=== PATIENT | female | born 1960 | race Caucasian/White ===

== ENCOUNTER 2019-10-08 16:28 | Emergency (ER) | payer MEDICAID, SELFPAY ==
[2019-10-08 16:47] VITALS: BP 142/83; PULSE 86; RESP 19; TEMP 36.7; O2SAT 98; BMI 29.2
--- NOTE | 2019-10-08 16:47 | XR_ITS ---
PROCEDURE: XR HUMERUS LT CLINICAL INDICATION: FALL Posttraumatic pain with limited range of motion and bruising COMPARISON: XR SHOULDER LT MIN 2V from 10/08/2019 FINDINGS: Nondisplaced avulsion fracture involves the base of the greater tuberosity. The mid distal aspect of the humerus has an unremarkable appearance. There is minimal comminution along the superior aspect of the fracture The joint spaces are well-preserved. No significant degenerative/arthritic changes. No erosive changes evident. Other findings:None. IMPRESSION: Nondisplaced avulsion fracture of the greater tuberosity Dictated by: Bon Fuentes MD 10/08/2019 17:19 Electronically signed by Bon Fuentes MD in [place] 10/08/2019 17:19
--- NOTE | 2019-10-08 17:26 | HMH.EDUTC ---
[facility] [place] Clinical Impression: Left humeral fracture Qualifiers: Encounter type: initial encounter Humerus Location: proximal Fracture type: closed Fracture morphology: other fracture Fracture alignment: nondisplaced Qualified Code(s): S42.295A - Other nondisplaced fracture of upper end of left humerus, initial encounter for closed fracture Disposition: Home, Self-Care Condition on Discharge: Good Instructions: Humeral Shaft Fracture Additional Instructions: Rest the extremity, apply ice for 15 minutes as tolerated three or four times per day. Take ibuprofen for pain. I sent in a prescription to your pharmacy. Follow up with Dr. Roa. I spoke to her over the phone. Her office is supposed to call you in the morning to have you come in to be seen there tomorrow. If you don't hear from them by 10:00 then please call her office. Follow up with your regular doctor. GO TO THE ER FOR ANY WORSENING SYMPTOMS Referrals: [place] Lara MD [Primary Care Provider] - Tess Roa MD [Physician] - Time of Disposition: 17:31 Medical Decision Making - Medical Records Medical records reviewed: No: I reviewed the patient's medical records. - Grabiel Inquiry Pt receiving controlled substance: No Vital Signs: 10/08/19 16:47 10/08/19 17:32 Temperature 98.1 F 98.1 F Temperature Source Oral Oral Pulse Rate 86 Pulse Rate [Right Brachial] 86 Respiratory Rate 19 19 Blood Pressure 142/83 H Blood Pressure [Right Arm] 142/83 H Blood Pressure Mean [Right Arm] 102 Blood Pressure Source Automatic Cuff Blood Pressure Source [Right Arm] Automatic Cuff Blood Pressure Position Sitting Blood Pressure Position [Right Arm] Sitting 02 Sat by Pulse Oximetry 98 Oxygen Delivery Method Room Air Room Air - Radiology Data #1 Image(s): Shoulder Image Reviewed: Yes I reviewed the patient's radiology image, Yes I have reviewed radiologist's interpretation FINDINGS: Nondisplaced avulsion fracture involves the base of the greater tuberosity. The mid distal aspect of the humerus has an unremarkable appearance. There is minimal comminution along the superior aspect of the fracture The joint spaces are well-preserved. No significant degenerative/arthritic changes. No erosive changes evident. Other findings:None. IMPRESSION: Nondisplaced avulsion fracture of the greater tuberosity #2 Image(s): Humerus Image Reviewed: Yes I reviewed the patient's radiology image, Yes I have reviewed radiologist's interpretation FINDINGS: Nondisplaced avulsion fracture involves the base of the greater tuberosity. The mid distal aspect of the humerus has an unremarkable appearance. There is minimal comminution along the superior aspect of the fracture The joint spaces are well-preserved. No significant degenerative/arthritic changes. No erosive changes evident. Other findings:None. IMPRESSION: Nondisplaced avulsion fracture of the greater tuberosity [facility] [place] - General Stated complaint: AO 0405 fell injured L Arm Time Seen by Provider: 10/08/19 17:00 Mode of Arrival: Family Vehicle Source of Information: Patient Limitations: No Limitations Description of Symptoms (Recalled from Triage Doc. by RN): s/p fall at home on sidewalk on Saturday10/04/19. c/o left arm and shoulder pain HEENT Symptoms (Recalled from RN notes): No Resp Symptoms (Recalled from RN notes): No Skin Symptoms (Recalled from RN notes): No MS Symptoms (Recalled from RN notes): Yes Functional Status (Recalled from RN notes): n/a - History of Present Illness Provider Complaint: She states that she fell yesterday in her yard and came down on her left shoulder and upper arm - Related Data Previous Rx's Medication Instructions Recorded levothyroxine 25 mcg tablet 25 mcg PO DAILY #30 tab 09/16/18 aspirin 81 mg tablet,delayed 81 mg PO DAILY #90 tab 08/14/19 release alendronate 70 mg tablet See Rx Instructions .ROUTE 09/16/19 .COMPL
[2019-10-08 17:32] VITALS: BP 142/83; PULSE 86; RESP 19; TEMP 36.7; O2SAT 98
== END 2019-10-08 17:37 | disposition home or self-care (01) ==
PROVIDERS: Emergency Provider Nurse Practitioner Family; PCP Emergency Medicine
DX: S42.255A Nondisplaced fracture of greater tuberosity of left humerus, initial encounter for closed fracture (principal); W01.0XXA Fall on same level from slipping, tripping and stumbling without subsequent striking against object, initial encounter; Y92.480 Sidewalk as the place of occurrence of the external cause; I10 Essential (primary) hypertension; E78.5 Hyperlipidemia, unspecified; E03.9 Hypothyroidism, unspecified; F17.210 Nicotine dependence, cigarettes, uncomplicated
CPT/HCPCS: 73030; 73060; 99201

== ENCOUNTER → 2019-10-14 12:42 | Outpatient (CLI) | payer MEDICAID, SELFPAY ==
--- NOTE | 2019-10-14 12:42 | CT_ITS ---
PROCEDURE: CT SHOULDER LT WO CON CLINICAL HISTORY: left proximal humerus fracture fu Pain following injury, evaluate shoulder fracture COMPARISON: XR SHOULDER LT MIN 2V from 10/08/2019 TECHNIQUE: Axial images obtained with sagittal and coronal reformats. All CT scans at the facility use one or more dose reduction, viz: automated exposure control, ma/kV adjustment per patient size (including targeted exams where dose is matched to indication, i.e. head), or iterative reconstruction technique. FINDINGS: There is a comminuted fracture involving the proximal humerus at the greater tuberosity. Main fracture fragment extends cephalad caudad through the base of the greater tuberosity with minimal lateral displacement of the fracture fragment by 4 mm. There is some comminution along the superior aspect of the fracture fragment. No evidence of humeral neck fracture. Mild narrowing of the subacromial space mm with minimal hypertrophic change of the acromioclavicular joint. A small subarticular cyst is present involving the acromion at the AC joint superiorly. No evidence glenohumeral dislocation. IMPRESSION: Minimally displaced longitudinal fracture involves the greater tuberosity of the proximal humerus with minimal comminution along the superior aspect of the main fracture fragment Dictated by: Bon Fuentes MD 10/14/2019 16:35 Electronically signed by Bon Fuentes MD in [place] 10/14/2019 16:37
== END ==
PROVIDERS: PCP Emergency Medicine; Visit Provider Orthopaedic Surgery
DX: S42.202A Unspecified fracture of upper end of left humerus, initial encounter for closed fracture (principal)
CPT/HCPCS: 73200

== ENCOUNTER → 2019-10-22 08:40 | Outpatient (CLI) | payer MEDICAID, SELFPAY ==
--- NOTE | 2019-10-22 08:42 | XR_ITS ---
PROCEDURE: XR SHOULDER LT MIN 2V CLINICAL INDICATION: humerus FX Follow-up fracture COMPARISON: No exams were available for comparison FINDINGS: Non displaced fracture once again noted involving the base of the greater tuberosity of the humerus. Fracture line appears somewhat more prominent but could be due to hyperemia seen at fracture sites. IMPRESSION: Nondisplaced avulsion fracture of the greater tuberosity once again noted with slight increased prominence of the fracture line Dictated by: Bon Fuentes MD 10/22/2019 13:26 Electronically signed by Bon Fuentes MD in [place] 10/22/2019 13:26
== END ==
PROVIDERS: PCP Emergency Medicine; Visit Provider Orthopaedic Surgery
DX: S42.252A Displaced fracture of greater tuberosity of left humerus, initial encounter for closed fracture (principal)
CPT/HCPCS: 73030

== ENCOUNTER → 2019-10-22 10:20 | Outpatient (CLI) | payer MEDICAID, SELFPAY ==
--- NOTE | 2019-10-22 10:36 | XR_ITS ---
PROCEDURE: XR CHEST 2V CLINICAL HISTORY: pre operation, HTN, SMOKER Hypertension and smoker COMPARISON: No exams were available for comparison FINDINGS: The cardiomediastinal silhouette and pulmonary vascularity are within normal limits. The lungs are clear without infiltrates, suspicious nodules, or pleural effusions. There is a calcified granuloma in the lung base anteriorly. No acute bony findings. A thin linear density is noted over the left apex and is felt represent an artifact IMPRESSION: No acute findings. Dictated by: Bon Fuentes MD 10/22/2019 12:44 Electronically signed by Bon Fuentes MD in [place] 10/22/2019 12:44
[2019-10-22 10:47] LABS: Basophils # 0.1 K/mm3 (0-0.2); Eosinophils # 0.3 K/mm3 (0.0-0.4); Eosinophils % 2.5 % (0.1-12.0); Hematocrit 45.7 % (37.0-47.0); Hemoglobin 15.2 g/dL (12.2-16.2); Lymphocytes # 2.2 K/mm3 (0.7-4.5); Lymphocytes % 20.2 % (10-50); Mean Corpuscular HGB Conc 33.4 g/dL (31.8-35.4); Mean Corpuscular Hemoglobin 32.9 pg (27.0-31.2); Mean Corpuscular Volume 98.7 fl (81-99); Mean Platelet Volume 8.1 fl (7.4-10.4); Monocytes # 0.3 K/mm3 (0.1-1.0); Monocytes % 2.9 % (1.7-9.3); Neutrophils # 8.1 K/mm3 (1.8-7.8); Neutrophils % 73.4 % (37.0-80.0); Platelet Count 275 K/mm3 (142-424); Red Blood Count 4.62 M/mm3 (4.20-5.40); Red Cell Distribution Width 12.4 % (11.5-17.5); White Blood Count 11.1 K/mm3 (4.8-10.8)
--- NOTE | 2019-10-22 10:58 | ECG_ITS ---
APPROVED REPORT Exam: Resting ECG HR:81 bpm ECG Measurements Heart Rate 81 AXES ME 146 P 27 QRSd 94 QRS 29 QT 392 T 51 QTc 455 <Conclusion> Normal sinus rhythm Incomplete right bundle branch block Septal infarct, age undetermined Abnormal ECG Electronically signed by : Dashawn 10/23/2019 06:56:20
[2019-10-22 11:13] LABS: Chloride 102 mmol/L (98-107); Potassium 4.4 mmoL/L (3.5-5.1); Sodium 139 mmol/L (136-145)
[2019-10-22 11:16] LABS: Alanine Aminotransferase 27 U/L (12-78); Albumin Level 5.1 g/dl (3.5-5.0); Albumin/Globulin Ratio 1.9 (1.1-1.8); Alkaline Phosphatase 95 U/L (38-126); Anion Gap 16.4 mEq/L (5-15); Aspartate Amino Transferase 45 U/L (14-36); Bilirubin,Total 0.5 mg/dl (0.2-1.3); Blood Urea Nitrogen 17 mg/dl (7-17); Calcium 10.6 mg/dl (8.4-10.2); Carbon Dioxide 25 mmol/L (22.0-30.0); Estimated Glomerular Filt Rate 86 ml/min (>60); GFR (African American) 104 ML/MIN (>60); Globulin 2.7 g/dL (1.3-3.2); Glucose 107 mg/dl (74-100); Total Protein,Serum 7.8 g/dl (6.3-8.2)
[2019-10-22 12:41] LABS: Activated Partial Thrombo Time 25.6 seconds (23.6-34.0); INR 0.94 (0.9-1.1); Prothrombin Time 9.8 seconds (9.4-11.8)
== END ==
PROVIDERS: Visit Provider Orthopaedic Surgery
DX: S42.252A Displaced fracture of greater tuberosity of left humerus, initial encounter for closed fracture (principal)
CPT/HCPCS: 36415; 71046; 73030; 80053; 85025; 85610; 85730; 93005

== ENCOUNTER 2019-10-27 06:04 | Day surgery (SDC) | payer MEDICAID, SELFPAY ==
[2019-10-26 13:15] VITALS: BMI 28.3
[2019-10-27] VITALS (8 sets, daily range): BP systolic 113–166; BP diastolic 59–90; PULSE 86–99; RESP 12–20; TEMP 36.4–36.6; O2SAT 95–98
--- NOTE | 2019-10-27 09:04 | HMH.ANESCL ---
[facility] Anesthesia Checklist - Structural Data Admitted From: Home Planned Operative Procedure/s: orif l humerus Consent for Planned Operative Procedure(s) Verified: Yes - Additional verifications Anesthesia Reactions: No Hx Blood Transfusions: No Blood Transfusion Reaction: No - Airway Assessment C-Spine Mobility Assessed: Yes TMJ Mobility Assessed: Yes Dentition: Partials - Neurological Assessment Level of Consciousness: Awake, Alert, Appropriate - Anesthesia Plan Anesthesia Risk discussed: Yes Anesthesia Plan: Verified ASA Class: II Anesthesia Type: General w/block - Preoperative Comments Pre-Operative Comments: discussed bp block w pt incl risks, pt wants to proceed w block [facility] History I have reviewed the patient's past medical history: Yes Medical History: Reports:: Cancer (uterine), Deep Vein Thrombosis, Hyperlipidemia, Hypertension Denies:: Diabetes Mellitus Type 1, Diabetes Mellitus Type 2, MRSA, Seizures *Have you ever received a pneumonia vaccine?: Yes *Have you received a flu vaccine this season?: Yes Other Medical History: Reports: Hypothyroidism. Denies: Blood Transfusion Reaction Anesthesia experience/problems:: none Other Surgeries: Yes: Cancer Surgery, Colonoscopy, Hysterectomy-Total Amputation: No Fractures: No - *Social History Educational Level: Attended College Smoking Status: Current every day smoker Tobacco Type: cigarettes # Packs/Day (cigarettes): 1 Alcohol Intake: never Substance Use Type: denies use *Occupational Status:: employed Housing: house Household Members: significant other, family *Travel in the last 8 weeks: None Family Hx:: Cancer, Hypertension
--- NOTE | 2019-10-27 10:17 | XR_ITS ---
PROCEDURE: XR HUMERUS LT CLINICAL INDICATION: LEFT HUMERUS ORIF COMPARISON: XR HUMERUS LT from 10/08/2019 FINDINGS: Fluoro Time 42 seconds multiple images are submitted during ORIF of the proximal humeral fracture with final images showing good alignment after a bone plate and multiple screws have been placed. Other findings:None. IMPRESSION: Good alignment status post ORIF proximal left humeral fracture Dictated by: Bon Fuentes MD 10/28/2019 13:56 Electronically signed by Bon Fuentes MD in [place] 10/28/2019 13:56
--- NOTE | 2019-10-27 10:19 | SUR.OPER ---
1010-family updated at this time
--- NOTE | 2019-10-27 10:50 | P.PN_ITS ---
[facility] Anesthesia Record Part I Intake, IV Amount: 2,000 Estimated blood loss (mL): 100 Urine output (mL): 200 Blood Pressure: 113/65 SaO2: 95 Pulse Rate: 95 Respiratory Rate: 12 Temperature: 97.6 F Patient is:: Awake, Stable Stable to PACU at:: 10:45
--- NOTE | 2019-10-27 10:56 | XR_ITS ---
PROCEDURE: XR SHOULDER LT MIN 2V CLINICAL INDICATION: s/p ORIF left proximal humerus Follow-up surgery COMPARISON: XR SHOULDER LT MIN 2V from 10/08/2019 XR SHOULDER LT MIN 2V from 10/22/2019 XR HUMERUS LT from 10/27/2019 FINDINGS: Has been interval open reduction and internal fixation the proximal humeral fracture with good alignment of the greater tuberosity avulsion fracture fragment. Postsurgical changes are present with bandage artifact IMPRESSION: Good alignment status post ORIF proximal humeral fracture with lateral bone plate with multiple screws Dictated by: Bon Fuentes MD 10/27/2019 11:46 Electronically signed by Bon Fuentes MD in [place] 10/27/2019 11:46
--- NOTE | 2019-10-27 11:11 | PC.NURSE ---
1111-radiology at bedside
--- NOTE | 2019-10-27 12:01 | PC.NURSE ---
1113-detailed bedside given to GHULAM Felder 1115-pt transferred to phase II at this time, vss, pt stable, pt left in care of GHULAM Felder
--- NOTE | 2019-10-27 13:11 | HMH.OPNOTE ---
Date of procedure: 10/27/19 Pre-op Diagnosis:: L proximal humerus (greater tuberosity) fracture Post-op Diagnosis:: L proximal humerus (greater tuberosity) fracture Procedure performed:: ORIF L proximal humerus (greater tuberosity) fracture Surgeon:: Tess Roa MD Ward Aide(s):: Patricia Martínez POWER ENGINEER:: Curry Cohen Anesthesia: GETA, regional Estimated blood loss (mL): 50 Clinical Note:: 58yo right hand dominant female who sustained an injury to the left shoulder on 10/04/2019 when she tripped over an uneven portion of the sidewalk while walking her dog, landing on the L shoulder. She had immediate pain and by the following day developed significant bruising across the front of the arm. She had hoped the injury was confined to bruising, but she was unable to lift her arm; this persisted throughout the week, prompting her to seek evaluation at the [facility] [place]/08/[place]. X-ray revealed a L proximal humerus fracture of the greater tuberoisity; she was placed in a sling. She saw me the following day, 10/09/19, and a CT scan performed. There was minimal displacement <4mm of the greater tuberosity and I initially felt non-operative treatment was feasible. Over the subsequent week, however, despite immobilization in a sling and no use of the L arm, the fracture fragment appears to have moved slightly. At her visit on 10/22/19, I recommended surgical fixation. She is a smoker but reports otherwise a clean bill of health. She had does have a diagnosis of hypertension and hypothyroidism, both controlled with medications. There is no DEXA scan in our system, but she does take alendronate. She has had a hysterectomy. She has a past history of spontaneous DVT, which was treated with prolonged warfarin therapy. This was eventually discontinued and she now only takes aspirin daily. She says her PCP tested her for hypercoagulable states, but is unsure of the exact test. She has never injured this shoulder before and reports no previous surgeries on the left upper extremity. Pain is rated an 8 out of 10 at its worst. She lives in a 2-story home with an adult child and her significant other, who is able to help care for her. She does not work outside the home. I discussed the risks and benefits of both surgical and nonsurgical treatment with the patient, including the risk of fracture displacement with associated rotator cuff dysfunction, subacromial impingement, and pain/disability and possible need for ORIF of nonunion associated with nonoperative treatment. I discussed the risk of surgical treatment, including bleeding, infection, neurovascular damage, persistent pain and stiffness in the shoulder, risk of nonunion/malunion or hardware failure, need for revision surgery. After discussing treatment options, the patient has elected to proceed with surgical fixation and informed consent was obtained. Operative findings:: implants: [employer] 4-hol greater tuberosity plate; 7 screws, all 3.5mm screws (1 cortical, 6 locking) Operative note:: The patient was identified in preoperative holding and the left shoulder signed by myself. Consent was reviewed with the patient and all questions answered. Interscalene nerve block was performed by anesthesia and the patient was taken to the OR. She was placed supine on the operative table, 2 g Ancef infused and general anesthesia induced. The patient was then positioned into the beachchair position with the head in a neutral position and well supported with all bony prominences padded. The left shoulder was then prepped and draped in the usual sterile fashion for open shoulder surgery. Timeout was performed, identifying the correct patient, correct procedure, and correct site. I began the procedure by using a marking pen to draw anatomic surface landmarks on the skin. Next I dereck a longitudinal line over the lateral aspect of the shoulder, from the acromion, distally approximately 5-6cm. Sterile 10-blade was used to incise the skin in th
[2019-10-27 15:31] LABS: Microscopic, Urine URINE MICROSCOPIC (MICROSCOPIC)
[2019-10-27 16:25] LABS: Appearance,Urine CLEAR (Clear); Bilirubin,Urine Negative (Negative); Blood, Urine TRACE-I (Negative); Color,Urine YELLOW (Yellow); Glucose,Urine (UA) Negative (Negative); Ketones,Urine Negative (Negative); Leukocyte Esterase,Urine Negative (Negative); Nitrate,Urine Negative (Negative); Protein,Urine Negative (Negative); Urobilinogen,Urine 0.2 EU/dl (0.2)
[2019-10-27 16:34] LABS: Bacteria,Urine Trace /lpf; WBC,Urine Occasional #/hpf (0-3)
--- NOTE | 2019-10-29 07:49 | HMH.ANESII ---
[facility] Anesthesia Record Part II Discharge Time: 11:15 Destination: [facility] PACU nurse assessment reviewed?: Yes Patient Condition:: Good Anesthesia Complications:: None Swallowing reflex intact?: Yes Cyanosis?: No Blood Pressure: 159/76 Pulse Rate: 90 Temperature: 97.5 F Mental Status: Alert & Oriented Pain level:: 0 Nausea and/or vomitting:: None Intake, IV Amount: 1,500
[2019-10-29 07:52] VITALS: BP 159/76; PULSE 90; TEMP 36.4
== END 2019-10-27 11:55 | disposition home or self-care (01) ==
LOC: OR 06:05
PROVIDERS: PCP Emergency Medicine; Visit Provider Orthopaedic Surgery
PROC: (CPT 23630; principal; 2019-10-27 07:30)
DX: S42.252A Displaced fracture of greater tuberosity of left humerus, initial encounter for closed fracture (principal); W01.0XXA Fall on same level from slipping, tripping and stumbling without subsequent striking against object, initial encounter; Y92.480 Sidewalk as the place of occurrence of the external cause
CPT/HCPCS: 23630; 73030; 73060; 76000; 81001; 96374; C1713; C1776; J2405

== ENCOUNTER → 2019-11-05 08:55 | Outpatient (CLI) | payer MEDICAID, SELFPAY ==
--- NOTE | 2019-11-05 09:07 | XR_ITS ---
PROCEDURE: XR SHOULDER LT MIN 2V CLINICAL INDICATION: post op: humerus fx Follow-up fracture COMPARISON: XR SHOULDER LT MIN 2V from 10/08/2019 XR SHOULDER LT MIN 2V from 10/22/2019 XR SHOULDER LT MIN 2V from 10/27/2019 FINDINGS: Bone plate has been placed along the lateral aspect of the proximal humerus stabilizing the fracture of the greater tuberosity with she is in good alignment. Humeral head is located with minimal inferior subluxation.. IMPRESSION: Good alignment status post ORIF proximal humeral fracture Dictated by: Bon Fuentes MD 11/05/2019 10:13 Electronically signed by Bon Fuentes MD in [place] 11/05/2019 10:13
== END ==
PROVIDERS: PCP Emergency Medicine; Visit Provider Orthopaedic Surgery
DX: S42.302A Unspecified fracture of shaft of humerus, left arm, initial encounter for closed fracture (principal)
CPT/HCPCS: 73030

== ENCOUNTER → 2019-11-19 08:32 | Outpatient (CLI) | payer MEDICAID, SELFPAY ==
--- NOTE | 2019-11-19 08:38 | XR_ITS ---
PROCEDURE: XR SHOULDER LT MIN 2V CLINICAL INDICATION: s/p lt humerus fx Follow-up ORIF COMPARISON: XR SHOULDER LT MIN 2V from 10/08/2019 XR SHOULDER LT MIN 2V from 10/22/2019 XR SHOULDER LT MIN 2V from 10/27/2019 XR SHOULDER LT MIN 2V from 11/05/2019 FINDINGS: Status post ORIF proximal humeral fracture with lateral bone plate with good alignment the greater tubercle fracture fragment. Fracture line is still visible IMPRESSION: No change good alignment status post ORIF proximal left humeral fracture Dictated by: Bon Fuentes MD 11/19/2019 09:32 Electronically signed by Bon Fuentes MD in [place] 11/19/2019 09:32
== END ==
PROVIDERS: PCP Emergency Medicine; Visit Provider Orthopaedic Surgery
DX: S42.202A Unspecified fracture of upper end of left humerus, initial encounter for closed fracture (principal)
CPT/HCPCS: 73030

== ENCOUNTER → 2019-12-08 14:51 | Outpatient (CLI) | payer MEDICAID, SELFPAY ==
[2019-12-09 10:07] LABS: Basophils % 0.3 % (0.1-2.0); Eosinophils # 0.1 K/mm3 (0.0-0.4); Eosinophils % 1.3 % (0.1-12.0); Hematocrit 45.5 % (37.0-47.0); Hemoglobin 14.3 g/dL (12.2-16.2); Lymphocytes # 2.2 K/mm3 (0.7-4.5); Lymphocytes % 23.8 % (10-50); Mean Corpuscular HGB Conc 31.5 g/dL (31.8-35.4); Mean Corpuscular Hemoglobin 33.2 pg (27.0-31.2); Mean Corpuscular Volume 105.4 fl (81-99); Mean Platelet Volume 9.8 fl (7.4-10.4); Monocytes # 0.4 K/mm3 (0.1-1.0); Neutrophils # 6.4 K/mm3 (1.8-7.8); Neutrophils % 70.6 % (37.0-80.0); Platelet Count 281 K/mm3 (142-424); Red Blood Count 4.32 M/mm3 (4.20-5.40); Red Cell Distribution Width 12.3 % (11.5-17.5)
[2019-12-09 10:19] LABS: Alanine Aminotransferase 25 U/L (12-78); Aspartate Amino Transferase 46 U/L (14-36); Bilirubin,Total 0.5 mg/dl (0.2-1.3); Blood Urea Nitrogen 12 mg/dl (7-17); Carbon Dioxide 29 mmol/L (22.0-30.0); Chloride 95 mmol/L (98-107); Estimated Glomerular Filt Rate 86 ml/min (>60); GFR (African American) 104 ML/MIN (>60); Glucose 96 mg/dl (74-100); Sodium 136 mmol/L (136-145); Total Protein,Serum 7.8 g/dl (6.3-8.2)
[2019-12-09 10:20] LABS: Albumin/Globulin Ratio 1.8 (1.1-1.8); Alkaline Phosphatase 75 U/L (38-126); Chol/HDL Ratio 2.6 (1-3.5); Cholesterol 145 mg/dl (140-200); Globulin 2.8 g/dL (1.3-3.2); HDL Cholesterol 56 mg/dl (40-60); Triglycerides 119 mg/dl (30-150); VLDL Cholesterol 24 mg/dL (0-40)
[2019-12-09 10:31] LABS: Direct LDL Cholesterol 87.17 mg/dL (100-129)
[2019-12-09 10:36] LABS: T4 (Thyroxine) 9.5 ug/dl (5.53-11.0)
[2019-12-09 10:49] LABS: Thyroid Stimulating Hormone 2.62 uIU/mL (0.465-4.68)
[2019-12-10 09:13] LABS: Vitamin D 25 Hydroxy 20.9 ng/mL (30.0-100.0)
== END ==
PROVIDERS: Visit Provider Physician Assistant
DX: E03.9 Hypothyroidism, unspecified (principal); I10 Essential (primary) hypertension; E55.9 Vitamin D deficiency, unspecified
CPT/HCPCS: 80053; 80061; 82652; 84436; 84443; 85025

== ENCOUNTER → 2019-12-09 16:20 | Outpatient (CLI) | payer MEDICAID, SELFPAY ==
[2019-12-11 11:17] LABS: Folate >20.0 ng/mL (>3.0); Parathyroid Hormone Intact 29 pg/mL (15-65)
[2019-12-11 11:18] LABS: Vitamin B12 669 pg/mL (232-1245)
[2019-12-11 17:10] LABS: Calcium, Ionized 5.5 mg/dL (4.5-5.6)
== END ==
PROVIDERS: Visit Provider Physician Assistant
DX: E83.52 Hypercalcemia (principal); R71.8 Other abnormality of red blood cells
CPT/HCPCS: 36415; 82330; 82607; 82746; 83970

== ENCOUNTER → 2019-12-14 08:38 | Outpatient (CLI) | payer MEDICAID, SELFPAY ==
--- NOTE | 2019-12-14 08:46 | XR_ITS ---
PROCEDURE: XR SHOULDER LT MIN 2V CLINICAL INDICATION: humerus FX Follow-up surgery COMPARISON: XR SHOULDER LT MIN 2V from 10/22/2019 XR SHOULDER LT MIN 2V from 10/27/2019 XR SHOULDER LT MIN 2V from 11/05/2019 XR SHOULDER LT MIN 2V from 11/19/2019 FINDINGS: Status post ORIF left proximal humerus with lateral bone plate. Comminuted fragment of the greater tubercle once again noted nondisplaced and unchanged. Humeral head is located. IMPRESSION: Good alignment status post ORIF left proximal humerus Dictated by: Bon Fuentes MD 12/14/2019 16:47 Electronically signed by Bon Fuentes MD in [place] 12/14/2019 16:47
== END ==
PROVIDERS: PCP Emergency Medicine; Visit Provider Orthopaedic Surgery
DX: S42.302A Unspecified fracture of shaft of humerus, left arm, initial encounter for closed fracture (principal)
CPT/HCPCS: 73030

== ENCOUNTER → 2020-01-14 08:35 | Outpatient (CLI) | payer MEDICAID, SELFPAY ==
--- NOTE | 2020-01-14 08:38 | XR_ITS ---
PROCEDURE: XR SHOULDER LT MIN 2V Patient Age:59Y CLINICAL INDICATION: humerus FX FU COMPARISON: October 26 and november 17 left shoulder radiograph FINDINGS: Left shoulder: Three views AP lateral and Y-view Stable appearance to the whole are IF of the proximal left humerus. Lateral bone plate is applied with multiple screws but comminuted fragment of the greater tuberosity tubercle again noted. Components are appear to be in reasonably stable position when compared to 11/18 and 10/27/19 left shoulder radiograph.. Relationships at glenohumeral joint appears satisfactory and stable. Articular surface humeral head intact. AC joint intact. IMPRESSION: . Good alignment status post ORIF left proximal humerus. Stable position of fracture and fixation elements since October and September Dictated by: Ben Andrade MD 01/14/2020 09:40 Electronically signed by Ben Andrade MD in [place] 01/14/2020 09:40
== END ==
PROVIDERS: PCP Emergency Medicine; Visit Provider Orthopaedic Surgery
DX: S42.302A Unspecified fracture of shaft of humerus, left arm, initial encounter for closed fracture (principal)
CPT/HCPCS: 73030

== ENCOUNTER 2020-02-01 15:00 | Outpatient (RCR) | payer MEDICAID, SELFPAY ==
--- NOTE | 2020-01-06 14:47 | HMH.RHREAS ---
Rehab Reassessment Rehab OP Re-assessment Start: 01/06/20 14:35 Freq: Status: Active Protocol: Document 01/06/20 14:35 ALEKSANDRA (Rec: 01/06/20 14:46 ALEKSANDRA [id number]) Electronically Signed By Adrianna Llamas OT 01/06/20 14:35 Rehab Re-assessment Subjective Subjective My arm is feeling pretty good . Objective Objective Notes Patient has participated well in OP OT services with AAROM, AROM, strengthening and modalities to improve ROM, strength and endurance. Patient has made improvements with all goals except for IR of L shoulder due to discomfort. Assessment Progress Assessment Progressing as Expected Assessment Notes Patient continues to make progress towards goals with positive outcomes of improve AROM and strengthening as well as decreasing pain. Patient goals met L shoulder flex: 110 L shoulder ABD: 85 L shoulder ER: 80 L shoulder strength: 3+ to 4-/ 5 Endurance: 30 mins Pain at worst:2/10 HEP continue Goals Not Met L shoulder IR: 55 due to discomfort Revised Goals L shoulder flex: 130 L shoulder ABD: 110 L shoulder ER: 85 L shoulder strength: 4- to 4 out of 5 Endurance: 40 mins Pain at worst:1/10 Continue HEP for advance strengthening Plan Plan Continue POC to advance to Phase III Frequency of Therapy 2x/ wk Duration of therapy 4 wks Time and Billing Re-Eval Time 15 Re-Eval Billing Units 1 PHYSICIAN CERTIFICATION: I certify the specified therapy services for Alexa Diaz are required, authorized, and reviewed every 30 days.
== END 2020-02-01 15:05 | disposition home or self-care (01) ==
LOC: OT 15:00
PROVIDERS: PCP Emergency Medicine; Visit Provider Orthopaedic Surgery
DX: S42.295D Other nondisplaced fracture of upper end of left humerus, subsequent encounter for fracture with routine healing (principal)
CPT/HCPCS: 97014; 97033; 97035; 97110; 97164; 97165; 97530; G0283

== ENCOUNTER → 2020-02-15 12:21 | Outpatient (CLI) | payer MEDICAID, SELFPAY ==
--- NOTE | 2020-02-15 12:25 | XR_ITS ---
PROCEDURE: XR SHOULDER LT MIN 2V CLINICAL INDICATION: Lt humerus FX Follow-up fracture COMPARISON: CR XR SHOULDER LT MIN 2V from 11/05/2019 DX XR SHOULDER LT MIN 2V from 11/19/2019 CR XR SHOULDER LT MIN 2V from 12/14/2019 CR XR SHOULDER LT MIN 2V from 01/14/2020 FINDINGS: Bone plate is present over the left proximal humerus with good alignment of the fracture fragments. The humeral head is located. The joint spaces are well-preserved. No significant degenerative/arthritic changes. No erosive changes evident. Other findings:None. IMPRESSION: Good alignment status post ORIF left proximal humeral fracture. Dictated by: Bon Fuentes MD 02/15/2020 12:55 Bon Fuentes MD in [place] 02/15/2020 12:55
== END ==
PROVIDERS: PCP Emergency Medicine; Visit Provider Orthopaedic Surgery
DX: S42.302A Unspecified fracture of shaft of humerus, left arm, initial encounter for closed fracture (principal)
CPT/HCPCS: 73030

== ENCOUNTER → 2020-04-12 18:12 | Outpatient (CLI) | payer MEDICAID, SELFPAY ==
[2020-04-12 18:38] LABS: Basophils # 0.1 K/mm3 (0-0.2); Basophils % 0.7 % (0.1-2.0); Eosinophils # 0.2 K/mm3 (0.0-0.4); Eosinophils % 2.2 % (0.1-12.0); Hematocrit 49.4 % (37.0-47.0); Hemoglobin 15.6 g/dL (12.2-16.2); Lymphocytes # 1.8 K/mm3 (0.7-4.5); Lymphocytes % 20.5 % (10-50); Mean Corpuscular HGB Conc 31.6 g/dL (31.8-35.4); Mean Corpuscular Hemoglobin 32.5 pg (27.0-31.2); Mean Corpuscular Volume 102.9 fl (81-99); Mean Platelet Volume 9.1 fl (7.4-10.4); Monocytes # 0.4 K/mm3 (0.1-1.0); Monocytes % 4.9 % (1.7-9.3); Neutrophils # 6.3 K/mm3 (1.8-7.8); Neutrophils % 71.8 % (37.0-80.0); Platelet Count 251 K/mm3 (142-424); Red Cell Distribution Width 13.7 % (11.5-17.5); White Blood Count 8.8 K/mm3 (4.8-10.8)
[2020-04-12 18:44] LABS: Alanine Aminotransferase 29 U/L (12-78); Albumin Level 5.2 g/dl (3.5-5.0); Alkaline Phosphatase 86 U/L (38-126); Anion Gap 16.1 mEq/L (5-15); Aspartate Amino Transferase 42 U/L (14-36); Bilirubin,Total 0.8 mg/dl (0.2-1.3); Blood Urea Nitrogen 21 mg/dl (7-17); Carbon Dioxide 25 mmol/L (22.0-30.0); Chloride 101 mmol/L (98-107); Chol/HDL Ratio 2.2 (1-3.5); Cholesterol 198 mg/dl (140-200); Estimated Glomerular Filt Rate 86 ml/min (>60); GFR (African American) 104 ML/MIN (>60); Globulin 2.6 g/dL (1.3-3.2); Glucose 100 mg/dl (74-100); HDL Cholesterol 89 mg/dl (40-60); Potassium 4.1 mmoL/L (3.5-5.1); Sodium 138 mmol/L (136-145); Total Protein,Serum 7.8 g/dl (6.3-8.2); Triglycerides 90 mg/dl (30-150); VLDL Cholesterol 18 mg/dL (0-40)
[2020-04-12 18:55] LABS: Direct LDL Cholesterol 89.17 mg/dL (100-129)
[2020-04-12 19:01] LABS: 25-OH Vitamin D, Total 47.2 ng/mL (30-100)
[2020-04-12 19:04] LABS: T4 (Thyroxine) 7.2 ug/dl (5.53-11.0)
[2020-04-12 19:16] LABS: Thyroid Stimulating Hormone 1.53 uIU/mL (0.465-4.68)
[2020-04-12 19:36] LABS: Vitamin B12 604 pg/mL (239-931)
== END ==
PROVIDERS: Visit Provider Physician Assistant
DX: E03.9 Hypothyroidism, unspecified (principal); E55.9 Vitamin D deficiency, unspecified; E78.5 Hyperlipidemia, unspecified; I10 Essential (primary) hypertension
CPT/HCPCS: 80053; 80061; 82306; 82607; 84436; 84443; 85025

== ENCOUNTER → 2020-04-15 10:58 | Outpatient (CLI) | payer MEDICAID, SELFPAY ==
[2020-04-15 13:22] LABS: Intact Parathyroid Hormone 37.2 pg/mL (7.5-53.5)
[2020-04-16 14:17] LABS: Calcium, Ionized 5.5 mg/dL (4.5-5.6)
== END ==
PROVIDERS: Visit Provider Physician Assistant
DX: E83.52 Hypercalcemia (principal)
CPT/HCPCS: 36415; 82330; 83970

== ENCOUNTER → 2020-04-21 08:05 | Outpatient (CLI) | payer MEDICAID, SELFPAY ==
--- NOTE | 2020-04-21 08:05 | MM_ITS ---
PROCEDURE: MM DIG SCREENING MAMM BI W/CAD Digital Breast Tomosynthesis Included CLINICAL INDICATION: breast cancer screening There is a history of breast cancer in the patient's mother diagnosed after menopause. The patient had a recent fall sustaining bruising to the left breast. COMPARISON: MG DMSB DIG MAMM-SCREEN CROW from 02/21/2015 MG DMSB DIG MAMM-SCREEN CROW from 02/24/2016 MG DMSB DIG MAMM-SCREEN CROW W/CAD from 03/08/2017 TECHNIQUE: Standard CC and MLO images and 3D Tomosynthesis was obtained. R2 CAD reviewed. FINDINGS: Views heterogenic fibroglandular densities are seen throughout both breasts. There is a mole marker near the axillary tail right breast. There are benign appearing macrocalcifications in each breast. There is a stable benign-appearing nodular density near the axillary tail on each breast probably low-lying nodes. There is no evidence of significant traumatic injury to the left breast. Section of microcalcifications deep upper left breast approximately 12 o'clock position highlighted by CAD. There were not definitely seen on the previous exam 03/08/2017. Recommend the patient return for spot compression magnification views and possibly ultrasound as well. IMPRESSION: Dense and heterogenic parenchymal pattern with possible new microcalcifications left breast BI-RAD Category: 0 Need Additional Imaging Evaluation FOLLOW-UP: IMM Immediate Follow-up Recommended (A letter has been sent to the patient regarding results of the study.) Dictated by: Dr. Vance Mccrary MD 04/23/2020 18:09 Dr. Vance Mccrary MD in [place] 04/23/2020 18:11
== END ==
PROVIDERS: PCP Physician Assistant; Visit Provider Physician Assistant
DX: Z12.31 Encounter for screening mammogram for malignant neoplasm of breast (principal)
CPT/HCPCS: 77063; 77067

== ENCOUNTER → 2020-05-05 09:40 | Outpatient (CLI) | payer MEDICAID, SELFPAY ==
--- NOTE | 2020-05-05 09:42 | XR_ITS ---
PROCEDURE: XR SHOULDER LT MIN 2V CLINICAL INDICATION: LT proximal humeral fracture=dos: 10/27/19 COMPARISON: DX XR SHOULDER LT MIN 2V from 11/19/2019 CR XR SHOULDER LT MIN 2V from 12/14/2019 CR XR SHOULDER LT MIN 2V from 01/14/2020 CR XR SHOULDER LT MIN 2V from 02/15/2020 FINDINGS: Lateral bone plate at the proximal humerus remains intact. No change in the greater tuberosity fragment. Unremarkable glenohumeral joint. The joint spaces are well-preserved. No significant degenerative/arthritic changes. No erosive changes evident. Other findings:None. IMPRESSION: No change prior ORIF proximal humeral fracture Dictated by: Bon Fuentes MD 05/05/2020 15:36 Bon Fuentes MD in [place] 05/05/2020 15:36
--- NOTE | 2020-05-05 14:33 | MM_ITS ---
PROCEDURE: MM DIG MAMM DX UNILAT LT CAD Digital Breast Tomosynthesis Included CLINICAL INDICATION: abn mamm Follow-up abnormal calcifications COMPARISON: MG DMSB DIG MAMM-SCREEN CROW from 02/24/2016 MG DMSB DIG MAMM-SCREEN CROW W/CAD from 03/08/2017 MG MM DIG SCREENING MAMM BI W/CAD from 04/21/2020 TECHNIQUE: Standard CC and MLO images and 3D Tomosynthesis was obtained. R2 CAD reviewed. FINDINGS: There is average fibroglandular tissue. Magnification views confirms a suspicious cluster of calcifications in the upper aspect of the left breast at the 12 o'clock region posterior 1/3. Stereotactic biopsy suggested for further evaluation. IMPRESSION: BI-RAD Category: 4 Suspicious Abnormality - Biopsy Considered FOLLOW-UP: BIO Biopsy Recommended (A letter has been sent to the patient regarding results of the study.) Dictated by: Bon Fuentes MD 05/13/2020 10:45 Bon Fuentes MD in [place] 05/13/2020 10:45
== END ==
PROVIDERS: PCP Physician Assistant; Visit Provider Physician Assistant
DX: S42.302A Unspecified fracture of shaft of humerus, left arm, initial encounter for closed fracture (principal); R92.8 Other abnormal and inconclusive findings on diagnostic imaging of breast
CPT/HCPCS: 73030; 77061; 77065; G0279

== ENCOUNTER → 2020-06-01 09:33 | Outpatient (CLI) | payer MEDICAID, SELFPAY ==
--- NOTE | 2020-06-01 | MM_ITS ---
PROCEDURE: MM CLIP PLACEMENT LT Digital Breast Tomosynthesis Included CLINICAL INDICATION: bx left breast Suspicious left-sided breast calcifications at 12 o'clock COMPARISON: MG MM DIG SCREENING MAMM BI W/CAD from 04/21/2020 MG MM DIG MAMM DX UNILAT LT CAD from 05/05/2020 MG MM SURGICAL SPECIMEN LT from 06/01/2020 MG MM CLIP PLACEMENT LT from 06/01/2020 TECHNIQUE: Following obtaining informed and time-out procedure the patient was placed in the stereotactic unit and the calcifications were localized using standard technique. Local anesthesia was obtained with 1 percent buffered lidocaine and deeper anesthesia with lidocaine mixed with epinephrine. A skin in neck was performed and mammotome needle inserted. Multiple mammotome core biopsies were obtained. Specimen radiograph demonstrates the calcifications of interest. A clip was then placed. The patient tolerated the procedure well without evidence of immediate complications and left radiology suite in stable condition. FINDINGS: Pathology: Low-grade DCIS. No invasive carcinoma. Fibroadenomatoid hyperplasia. Microcalcifications were present. ER MS Post biopsy mammogram/clip placement: Post biopsy changes are present in the deep aspect of the left breast at the 12 o'clock position. Microcalcifications are present at this area although less in number compared to the pre biopsy study. The biopsy clip is also placed at this area although somewhat deep to the calcifications of interest.. IMPRESSION: Uneventful stereotactic directed biopsy of the left breast showing low-grade DCIS. Surgical consult suggested. Dictated by: Bon Fuentes MD 06/10/2020 18:26 Bon Fuentes MD in [place] 06/10/2020 18:26 Dictated by: Bon Fuentes MD 06/10/2020 18:41 Bon Fuentes MD in [place] 06/10/2020 18:41
--- NOTE | 2020-06-01 | MM_ITS ---
PROCEDURE: MM STEREOTACTIC LOC LT Digital Breast Tomosynthesis Included CLINICAL INDICATION: bx left breast Suspicious left-sided breast calcifications at 12 o'clock COMPARISON: MG MM DIG SCREENING MAMM BI W/CAD from 04/21/2020 MG MM DIG MAMM DX UNILAT LT CAD from 05/05/2020 MG MM SURGICAL SPECIMEN LT from 06/01/2020 MG MM CLIP PLACEMENT LT from 06/01/2020 TECHNIQUE: Following obtaining informed and time-out procedure the patient was placed in the stereotactic unit and the calcifications were localized using standard technique. Local anesthesia was obtained with 1 percent buffered lidocaine and deeper anesthesia with lidocaine mixed with epinephrine. A skin in neck was performed and mammotome needle inserted. Multiple mammotome core biopsies were obtained. Specimen radiograph demonstrates the calcifications of interest. A clip was then placed. The patient tolerated the procedure well without evidence of immediate complications and left radiology suite in stable condition. FINDINGS: Pathology: Low-grade DCIS. No invasive carcinoma. Fibroadenomatoid hyperplasia. Microcalcifications were present. ER WA Post biopsy mammogram/clip placement: Post biopsy changes are present in the deep aspect of the left breast at the 12 o'clock position. Microcalcifications are present at this area although less in number compared to the pre biopsy study. The biopsy clip is also placed at this area although somewhat deep to the calcifications of interest.. IMPRESSION: Uneventful stereotactic directed biopsy of the left breast showing low-grade DCIS. Surgical consult suggested. Dictated by: Bon Fuentes MD 06/10/2020 18:26 Bno Fuentes MD in [place] 06/10/2020 18:26
== END ==
PROVIDERS: PCP Emergency Medicine; Visit Provider Physician Assistant
DX: R92.8 Other abnormal and inconclusive findings on diagnostic imaging of breast (principal)
CPT/HCPCS: 19081; 76098; 77065

== ENCOUNTER → 2020-07-27 12:58 | Outpatient (CLI) | payer MEDICAID, SELFPAY ==
--- NOTE | 2020-07-27 13:13 | CT_ITS ---
PROCEDURE: CT LUNG SCREENING CLINICAL INDICATION: HX OF NICOTINE DEPENDENCE Current smoker 15 pack year smoking history No prior COMPARISON: No exams were available for comparison TECHNIQUE: The exam was performed on a GE Light Speed [address] scanner using 2.90 mGy CTDI. A low dose helical CT CHEST was performed on a multi-detector scanner. All CT scans at the facility use one or more dose reduction, viz: automated exposure control, ma/kV adjustment per patient size (including targeted exams where dose is matched to indication, i.e. head), or iterative reconstruction technique. The LDCT was performed in a facility that meets the criteria for the screening program. Data regarding this exam was submitted to ACR which is an approved registry. The order for this exam indicates that it came as a result of a lung cancer screening counseling shard decision-making visit that included all the elements required of such a visit including smoking cessation. The radiologist interpreting this exam meets the [facility] criteria for the LDCT lung cancer screening program. The exam is reported using the Lung-RADS classification scale and reported to the ACR registry. NOTE: This study was performed for the specific purposes of lung cancer screening and is not an alternative to diagnostic chest CT. RADIATION DOSE: CTDI vol(CT dose Index-volume) = 2.90mG DLP (Dose Length Product) = 101.68 mGcm FINDINGS: COPD changes. Old granulomatous disease. No suspicious pulmonary nodules. OTHER FINDINGS: Coronary artery calcification. There is increased density in the portal area. This may only be due to combination of unopacified duodenum and vessels and pancreas. Cannot exclude a portal mass. Suggest dedicated CT abdomen with IV and oral contrast. IMPRESSION: Lung-RADS Category 1 Negative Follow-up: Continue annual screening with LDCT in 12 months Increased density in the portal area as described above. Suggest dedicated abdomen CT with IV and oral contrast for further evaluation. Dictated by: Bon Fuentes MD 08/01/2020 07:17 Bon Fuentes MD in [place] 08/01/2020 07:17
== END ==
PROVIDERS: PCP Emergency Medicine; Visit Provider Internal Medicine Medical Oncology
DX: Z87.891 Personal history of nicotine dependence (principal); Z12.2 Encounter for screening for malignant neoplasm of respiratory organs
CPT/HCPCS: 71271

== ENCOUNTER → 2020-08-16 10:36 | Outpatient (CLI) | payer MEDICAID, SELFPAY ==
[2020-08-16 11:24] LABS: Blood Urea Nitrogen 25 mg/dl (7-17); Estimated Glomerular Filt Rate 86 ml/min (>60); GFR (African American) 104 ML/MIN (>60)
== END ==
PROVIDERS: PCP Emergency Medicine; Visit Provider Internal Medicine Medical Oncology
DX: Z01.818 Encounter for other preprocedural examination (principal); R93.89 Abnormal findings on diagnostic imaging of other specified body structures
CPT/HCPCS: 36415; 82565; 84520

== ENCOUNTER → 2020-08-17 10:35 | Outpatient (CLI) | payer MEDICAID, SELFPAY ==
--- NOTE | 2020-08-17 10:44 | CT_ITS ---
PROCEDURE: CT ABDOMEN PELVIS W CON CLINICAL INDICATION: POSSIBLE PORTAL MASS,INCREASED DENSITY COMPARISON: CT CT LUNG SCREENING from 07/27/2020 TECHNIQUE: IV Contrast: 75ML Isovue 370 Oral Contrast administered Axial images obtained with sagittal and coronal reformats. All CT scans at the facility use one or more dose reduction, viz: automated exposure control, ma/kV adjustment per patient size (including targeted exams where dose is matched to indication, i.e. head), or iterative reconstruction technique. FINDINGS: LOWER THORAX: No acute finding ABDOMEN & PELVIS: There is no intraperitoneal free air. There is no intraperitoneal free fluid. There is a 1 centimeter intermediate density exophytic left renal cyst. There is a possible complex the nonenhancing renal cysts and renal cysts too small to further characterize. The solid solid abdominal organs are otherwise normal. The urinary bladder is unremarkable. There is very little intraperitoneal and retroperitoneal fat in the pelvis which decreases visualization and diagnostic accuracy for findings in this area. No uterus and no definite ovaries are visualized. Correlate with surgical history. There is no intraluminal contrast in the sigmoid which reduces detection for abnormalities in this area. There are several scattered diverticuli in the distal colon. There is a normal appendix which courses inferiorly to lie adjacent to the right wall of the urinary bladder. There are multiple nondilated loops of small bowel gathered in the lower pelvis. This could be normal for this patient or could represent scarring if prior surgery has been performed. There is no abdominal or pelvic adenopathy. There is minimal scattered atherosclerotic calcification in the vasculature. There are scattered degenerative changes in the skeleton. The questionable abnormality reported on prior chest CT screening study corresponds to an area of normal anatomic structures. IMPRESSION: 1. Normal anatomic structures in the area of concern from prior screening lung CT. No abnormality in this area. 2. Multiple small bilateral renal cysts, 1 of which may have complex features. Renal ultrasound suggested for further evaluation. 3. Several diverticuli without CT evidence of diverticulitis. 4. Other minor findings as described above. Dictated by: Maddi Nagel MD 08/17/2020 13:39 Maddi Nagel MD in [place] 08/17/2020 13:39
== END ==
PROVIDERS: PCP Emergency Medicine; Visit Provider Podiatrist
DX: N63.20 Unspecified lump in the left breast, unspecified quadrant (principal); Z12.2 Encounter for screening for malignant neoplasm of respiratory organs
CPT/HCPCS: 74177; Q9967

== ENCOUNTER → 2020-08-22 11:43 | Outpatient (CLI) | payer MEDICAID, SELFPAY ==
[2020-08-22 12:09] LABS: Basophils # 0.1 K/mm3 (0-0.2); Basophils % 0.5 % (0.1-2.0); Eosinophils # 0.2 K/mm3 (0.0-0.4); Eosinophils % 1.4 % (0.1-12.0); Hematocrit 41.3 % (37.0-47.0); Hemoglobin 13.7 g/dL (12.2-16.2); Lymphocytes # 2.1 K/mm3 (0.7-4.5); Lymphocytes % 19.7 % (10-50); Mean Corpuscular HGB Conc 33.1 g/dL (31.8-35.4); Mean Corpuscular Hemoglobin 34.6 pg (27.0-31.2); Mean Corpuscular Volume 104.4 fl (81-99); Mean Platelet Volume 7.5 fl (7.4-10.4); Monocytes # 0.5 K/mm3 (0.1-1.0); Monocytes % 4.9 % (1.7-9.3); Neutrophils # 7.9 K/mm3 (1.8-7.8); Neutrophils % 73.6 % (37.0-80.0); Platelet Count 286 K/mm3 (142-424); Red Blood Count 3.95 M/mm3 (4.20-5.40); Red Cell Distribution Width 12.6 % (11.5-17.5); White Blood Count 10.8 K/mm3 (4.8-10.8)
[2020-08-22 12:34] LABS: Blood Urea Nitrogen 15 mg/dl (7-17); Calcium 10.3 mg/dl (8.4-10.2); Carbon Dioxide 25 mmol/L (22.0-30.0); Chloride 98 mmol/L (98-107); Estimated Glomerular Filt Rate 103 ml/min (>60); GFR (African American) 124 ML/MIN (>60); Glucose 95 mg/dl (74-100); Sodium 133 mmol/L (136-145)
[2020-08-22 12:55] LABS: Coronavirus 19 IgG Antibody Negative (Negative); Coronavirus 19 IgM Antibody Negative (Negative)
== END ==
PROVIDERS: Visit Provider Surgery
DX: Z01.818 Encounter for other preprocedural examination (principal); Z20.822 Contact with and (suspected) exposure to COVID-19; N63.42 Unspecified lump in left breast, subareolar
CPT/HCPCS: 36415; 80048; 85025; 86328

== ENCOUNTER 2020-08-24 07:48 | Day surgery (SDC) | payer MEDICAID, SELFPAY ==
[2020-08-17 13:57] VITALS: BMI 21.9
[2020-08-24] VITALS (10 sets, daily range): BP systolic 121–158; BP diastolic 63–96; PULSE 77–106; RESP 16–20; TEMP 36.1–36.6; O2SAT 96–100
--- NOTE | 2020-08-24 08:18 | P.PN_ITS ---
[facility] Anesthesia Checklist - Patient Identification Patient Identification: Arm Band - Structural Data Admitted From: Home Planned Operative Procedure/s: Left Breast Lumpectomy with Needle Localization Consent for Planned Operative Procedure(s) Verified: Yes Verified Documents: Surgical Consent, History and Physical - NPO Status Verified Time NPO: 00:00 - Additional verifications Anesthesia Reactions: No Hx Blood Transfusions: No Blood Transfusion Reaction: No - Airway Assessment C-Spine Mobility Assessed: Yes (mp2) TMJ Mobility Assessed: Yes Dentition: Good Dentition (upper partial) - Neurological Assessment Level of Consciousness: Awake, Alert - Anesthesia Plan Anesthesia Risk discussed: Yes Anesthesia Plan: Verified ASA Class: II Anesthesia Type: General [facility] History I have reviewed the patient's past medical history: Yes Medical History: Reports:: Cancer, Deep Vein Thrombosis, Hyperlipidemia, Hypertension Denies:: Diabetes Mellitus Type 1, Diabetes Mellitus Type 2, Internal Pacemaker, MRSA, Seizures *Have you ever received a pneumonia vaccine?: Yes *Have you received a flu vaccine this season?: Yes Other Medical History: Reports: Hypothyroidism. Denies: Blood Transfusion Reaction Anesthesia experience/problems:: nac Laterality Cases: Left: Arthroscopy Shoulder, Breast Biopsy Other Surgeries: Yes: Cancer Surgery, Colonoscopy, Hysterectomy-Total. No: Pacemaker Amputation: No Fractures: Yes - *Social History Last grade of school completed: Some college Smoking Status: Current every day smoker Tobacco Type: cigarettes # Packs/Day (cigarettes): 1 Alcohol Intake: never Substance Use Type: denies use *Occupational Status:: employed Housing: house Household Members: significant other, family *Travel in the last 8 weeks: None Family Hx:: Cancer, Hypertension
--- NOTE | 2020-08-24 08:21 | MM_ITS ---
PROCEDURE: MM NEEDLE LOC LT Digital Breast Tomosynthesis Included CLINICAL INDICATION: mass in breast DCIS on recent stereotactic biopsy. COMPARISON: MG MM CLIP PLACEMENT LT from 06/01/2020 MG MM SURGICAL SPECIMEN LT from 08/24/2020 TECHNIQUE: Standard hookwire localization technique. FINDINGS: Following obtaining informed consent and time-out procedure under aseptic conditions and local anesthesia with 1 percent buffered lidocaine, 7 cm Kopan's needle was inserted just posterior to the cluster of calcifications and anterior to the previously placed clip. Post localization images show good hookwire employment. The patient tolerated the procedure well without evidence of immediate complications. Surgical specimen: Initial specimen demonstrated the calcifications of interest but not the previously placed clip. Second specimen did demonstrate the previously placed clip. IMPRESSION: Successful needle localization of the left breast as described above Dictated by: Bon Fuentes MD 09/06/2020 09:11 Bon Fuentes MD in [place] 09/06/2020 09:11
--- NOTE | 2020-08-24 09:53 | SUR.OPER ---
0948-specimen from left breast excised at this time and taken to radiology for imagin, awaiting confirmation at this time
--- NOTE | 2020-08-24 09:56 | SUR.OPER ---
[id number]-Dr. Fuentes called at this time and discussed plan with Dr. Thorne based on breast specimen excised
--- NOTE | 2020-08-24 10:11 | SUR.OPER ---
1008-additional specimen taken over for imaging at this time 1011-Dr. Fuentes called and confirmed all specimen was excised, notified Dr. Thorne
--- NOTE | 2020-08-24 10:29 | P.OP_ITS ---
Date of procedure: 08/24/20 Pre-op Diagnosis:: DCIS of the left breast Post-op Diagnosis:: Same Procedure performed:: Left breast lumpectomy after wire localization Surgeon:: Elbert Thorne MD STEWARD/STEWARDESS TOURIST CLASS:: Other Anesthesia: GETA Estimated blood loss (mL): 20 Clinical Note:: Patient is a 59-year-old female originally referred by Zuleyma Dee for evaluation of left breast cancer . She states that her mother had breast cancer. She underwent screening mammograms on 04/21/2020. She was found to have dense breasts bilaterally but had a cluster of microcalcifications in the deep upper left breast at approximately the 12 o'clock position which was confirmed by diagnostic mammogram additional views. On 06/01/2020 she underwent stereotactic vacuum-assisted core biopsy which revealed low-grade comedo type and solid form DCIS. She was sent for surgical consultation. I saw Her in the office on 06/10/2020. Plan was for MRI. There were no right-sided lesions. On the left in the posterior 12 o'clock position approximately 7 cm from the nipple there was a 0.4 cm enhancing area consistent with biopsy cavity. Clip is displaced inferior and slightly posterior to the lesion. Operative findings:: Dense fibrocystic type breast tissue Operative note:: Patient was taken to the operating room. She was positioned in a supine position. General anesthesia was induced. Left breast was prepped and draped in the standard surgical fashion. Curvilinear incision was made along normal skin lines in the superior left breast inferior to the site where the wire entered the skin. Electrocautery was used for limited superior skin flap creation. Wire was then delivered to the wound. Dissection was carried out inferiorly and deep circumferentially around the lesion using electrocautery. Dissection was essentially carried down to the pectoralis muscle. Breast tissue with contained wire was then sent for specimen radiograph. This revealed the calcifications to be present but the previous clip was not visualized. Additional dissection was then carried out laterally and deep based on the mamm ogram with extended lateral deep margin. This was sent for specimen radiograph which revealed the clip to be present. Wound was then thoroughly irrigated. Hemostasis was achieved with electrocautery. Local anesthetic had been infiltrated. Several clips were placed in the mastectomy bed to jared the area for future external beam radiotherapy. Subdermal tissues were then closed with a running 2-0 Vicryl. Skin was closed with 4-0 Monocryl in a running subcuticular fashion. Dressing was applied. Condition: stable Disposition: PACU Complications:: None immediately apparent
--- NOTE | 2020-08-24 10:40 | HMH.ANESI ---
[facility] Anesthesia Record Part I Intake, IV Amount: 800 Estimated blood loss (mL): 70 Urine output (mL): 0 Blood Pressure: 121/72 SaO2: 96 Pulse Rate: 106 Respiratory Rate: 20 Temperature: 97.1 F Patient is:: Awake Stable to PACU at:: 10:41
--- NOTE | 2020-08-25 14:52 | HMH.ANESII ---
[facility] Anesthesia Record Part II Discharge Time: 11:05 Destination: Surgical Day Care (OP Surgery) PACU nurse assessment reviewed?: Yes Patient Condition:: Good Anesthesia Complications:: None Swallowing reflex intact?: Yes Cyanosis?: No Blood Pressure: 131/63 Pulse Rate: 101 Temperature: 97 F Mental Status: Alert & Oriented Pain level:: 0 Nausea and/or vomitting:: None Intake, IV Amount: 0
[2020-08-25 14:53] VITALS: BP 131/63; PULSE 101; TEMP 36.1
== END 2020-08-24 11:48 | disposition home or self-care (01) ==
LOC: OR 07:49
PROVIDERS: PCP Emergency Medicine; Visit Provider Surgery
PROC: (CPT 19301; principal; 2020-08-24 09:45)
DX: D05.12 Intraductal carcinoma in situ of left breast (principal); I10 Essential (primary) hypertension; E78.5 Hyperlipidemia, unspecified; E03.9 Hypothyroidism, unspecified; Z86.718 Personal history of other venous thrombosis and embolism; Z87.39 Personal history of other diseases of the musculoskeletal system and connective tissue; Z72.0 Tobacco use; Z80.3 Family history of malignant neoplasm of breast; Z82.49 Family history of ischemic heart disease and other diseases of the circulatory system; Z79.82 Long term (current) use of aspirin; Z79.899 Other long term (current) drug therapy
CPT/HCPCS: 19301; 19281; 76098; 96374; J2405

== ENCOUNTER → 2020-09-09 10:56 | Outpatient (CLI) | payer MEDICAID, SELFPAY ==
[2020-09-09 11:46] LABS: Basophils # 0.1 K/mm3 (0-0.2); Basophils % 0.9 % (0.1-2.0); Eosinophils # 0.2 K/mm3 (0.0-0.4); Eosinophils % 3.1 % (0.1-12.0); Hematocrit 41.8 % (37.0-47.0); Hemoglobin 13.2 g/dL (12.2-16.2); Lymphocytes # 1.8 K/mm3 (0.7-4.5); Lymphocytes % 23.4 % (10-50); Mean Corpuscular HGB Conc 31.7 g/dL (31.8-35.4); Mean Corpuscular Hemoglobin 35.5 pg (27.0-31.2); Monocytes # 0.3 K/mm3 (0.1-1.0); Monocytes % 4.2 % (1.7-9.3); Neutrophils # 5.4 K/mm3 (1.8-7.8); Neutrophils % 68.6 % (37.0-80.0); Platelet Count 221 K/mm3 (142-424); Red Blood Count 3.73 M/mm3 (4.20-5.40); Red Cell Distribution Width 14.8 % (11.5-17.5); White Blood Count 7.8 K/mm3 (4.8-10.8)
== END ==
PROVIDERS: Visit Provider Surgery
DX: N63.10 Unspecified lump in the right breast, unspecified quadrant (principal)
CPT/HCPCS: 36415; 85025

== ENCOUNTER 2020-09-19 09:50 | Emergency (ER) | payer MEDICAID, SELFPAY ==
[2020-09-19 10:01] VITALS: BP 160/93; PULSE 93; RESP 16; TEMP 37.2; O2SAT 98; BMI 22.8
[2020-09-19 10:10] VITALS: BP 157/93; PULSE 74; RESP 18; O2SAT 96
--- NOTE | 2020-09-19 10:16 | CT_ITS ---
PROCEDURE: CT CHEST W CON CLINCAL INDICATION: L breast swelling post op Recent lumpectomy with left breast swelling COMPARISON: CT CT LUNG SCREENING from 07/27/2020 TECHNIQUE: IV Contrast: 75ml Isovue 370 Axial images obtained with sagittal and coronal reformats. All CT scans at the facility use one or more dose reduction, viz: automated exposure control, ma/kV adjustment per patient size (including targeted exams where dose is matched to indication, i.e. head), or iterative reconstruction technique. FINDINGS: There is a large somewhat heterogeneous fluid collection occupying the left breast measuring 12 x 7 by 10 cm transverse AP and cephalad caudad. There are some clips along the posterior aspect of this collection. Hematoma/seroma is considered. No gas is evident within the collection. No evidence of aortic aneurysm or pulmonary embolus. Lungs are clear. There is some minimal atelectatic change in the left lower lobe. No acute bony findings. Upper abdominal images show fatty liver with left renal cysts and prominence of the left renal pelvis. No acute bony findings. IMPRESSION: Large fluid collection involving the left breast consistent with hematoma/seroma Dictated by: Bon Fuentes MD 09/19/2020 12:12 Bon Fuentes MD in [place] 09/19/2020 12:12
--- NOTE | 2020-09-19 10:22 | HMH.EDGENADL ---
ED Disposition Clinical Impression: Hematoma of left breast Disposition: Home, Self-Care Condition on Discharge: Good Referrals: Norris Ceja MD [Staff Physician] - 09/20/20 9:15 am - Critical Care Critical Care Time: No Attestation: On 09/19/20, the high probability of a clinically significant, sudden or life threatening deterioration of the following system(s) required my full and direct attention, intervention and personal management. The time I documented below is in addition to time spent performing reported procedures but includes the following listed in this critical care notation. Medical Decision Making - Medical Records Medical records reviewed: Yes: I reviewed the patient's medical records. - Grabiel Inquiry Pt receiving controlled substance: No Vital Signs: 09/19/20 10:01 09/19/20 10:10 09/19/20 11:41 Temperature 98.9 F Temperature Source Oral Pulse Rate 74 87 Pulse Rate [Radial] 93 H Respiratory Rate 16 18 16 Blood Pressure 157/93 H 118/77 Blood Pressure [Right Arm] 160/93 H Blood Pressure Mean 95 Blood Pressure Mean [Right Arm] 115 Blood Pressure Source Automatic Cuff Blood Pressure Position Sitting Blood Pressure Position [Right Arm] Sitting 02 Sat by Pulse Oximetry 98 96 97 Oxygen Delivery Method Room Air Room Air 09/19/20 12:41 Temperature Temperature Source Pulse Rate 91 H Pulse Rate [Radial] Respiratory Rate 18 Blood Pressure 128/84 Blood Pressure [Right Arm] Blood Pressure Mean 96 Blood Pressure Mean [Right Arm] Blood Pressure Source Blood Pressure Position Blood Pressure Position [Right Arm] 02 Sat by Pulse Oximetry 98 Oxygen Delivery Method - Lab Data Lab Results 09/19/20 10:35: WBC 7.6, RBC 4.11 L, Hgb 14.9, Hct 45.3, MCV 110.3 H, MCH 36.2 H, MCHC 32.8, RDW 14.1, Plt Count 189, MPV 8.3, Neut % (Auto) 76.1, Lymph % (Auto) 16.7, Lee % (Auto) 5.6, Eos % (Auto) 0.9, Baso % (Auto) 0.7, Neut # (Auto) 5.8, Lymph # (Auto) 1.3, Lee # (Auto) 0.4, Eos # (Auto) 0.1, Baso # (Auto) 0.1 09/19/20 10:35: Sodium 138, Potassium 3.8, Chloride 99, Carbon Dioxide 26, Anion Gap 16.8 H, BUN 18 H, Creatinine 0.60, Estimated Creat Clear 91, Estimated GFR 103, Est GFR ( Amer) 124, Glucose 106 H, Calcium 10.9 H, Total Bilirubin 0.8, AST 77 H, ALT 52, Alkaline Phosphatase 95, Total Protein 8.9 H, Albumin 5.7 H, Globulin 3.2, Albumin/Globulin Ratio 1.8 09/19/20 10:46: PT 10.0 L, INR 0.84 L, APTT 26.8 Result diagrams: 09/19/20 10:35 09/19/20 10:35 Orders (Tests/Meds): ED MEDICATIONS Discontinued Medications Generic Name Dose Route Start Last Admin Trade Name Freq PRN Reason Stop Dose Admin Iopamidol 75 ml 09/19/20 11:29 09/19/20 11:29 Iopamidol-370 (76%);100ml Bottle IV 09/19/20 11:30 75 ml ONCE ONE Administration Sodium Chloride 10 ml 09/19/20 11:29 09/19/20 11:29 Sodium Chloride 0.9% 10ml Syr (Rad Only) IV 09/19/20 11:30 10 ml ONCE ONE Administration - CT Data CT Scan: Chest Time Received: 12:[address] Reviewed: Yes: I have reviewed the patient's CT results, I have viewed the radiologist's interpretation Findings Narrative: IMPRESSION: Large fluid collection involving the left breast consistent with hematoma/seroma - Reevaluation(s) Time: 12:57 Reevaluation #1: Patient does have evidence of a large hematoma in the left breast. However there is no significant signs of infection. I did speak with the surgeon who is covering for Dr. Thorne at this point. He was notified about the patient. He will be seeing her in the office tomorrow morning. Patient was notified of this. Given strict return precautions. Verbalized understanding. Medical Decision Narrative: 59-year-old female presenting with swelling in the left breast. The patient did have a recent lumpectomy. I do believe findings are consistent with hematoma or seroma. Imaging obtained. General Adult HPI - General Chief complaint: Lashaun
[2020-09-19 10:48] LABS: Basophils # 0.1 K/mm3 (0-0.2); Basophils % 0.7 % (0.1-2.0); Eosinophils # 0.1 K/mm3 (0.0-0.4); Eosinophils % 0.9 % (0.1-12.0); Hematocrit 45.3 % (37.0-47.0); Hemoglobin 14.9 g/dL (12.2-16.2); Lymphocytes # 1.3 K/mm3 (0.7-4.5); Lymphocytes % 16.7 % (10-50); Mean Corpuscular HGB Conc 32.8 g/dL (31.8-35.4); Mean Corpuscular Hemoglobin 36.2 pg (27.0-31.2); Mean Corpuscular Volume 110.3 fl (81-99); Mean Platelet Volume 8.3 fl (7.4-10.4); Monocytes # 0.4 K/mm3 (0.1-1.0); Monocytes % 5.6 % (1.7-9.3); Neutrophils # 5.8 K/mm3 (1.8-7.8); Neutrophils % 76.1 % (37.0-80.0); Platelet Count 189 K/mm3 (142-424); Red Blood Count 4.11 M/mm3 (4.20-5.40); Red Cell Distribution Width 14.1 % (11.5-17.5); White Blood Count 7.6 K/mm3 (4.8-10.8)
[2020-09-19 11:00] LABS: Chloride 99 mmol/L (98-107); Sodium 138 mmol/L (136-145)
[2020-09-19 11:01] LABS: Potassium 3.8 mmoL/L (3.5-5.1)
[2020-09-19 11:03] LABS: Alanine Aminotransferase 52 U/L (12-78); Albumin Level 5.7 g/dl (3.5-5.0); Albumin/Globulin Ratio 1.8 (1.1-1.8); Alkaline Phosphatase 95 U/L (38-126); Anion Gap 16.8 mEq/L (5-15); Aspartate Amino Transferase 77 U/L (14-36); Bilirubin,Total 0.8 mg/dl (0.2-1.3); Blood Urea Nitrogen 18 mg/dl (7-17); Calcium 10.9 mg/dl (8.4-10.2); Carbon Dioxide 26 mmol/L (22.0-30.0); Creatinine Clearance Estimated 91 mL/min (50-200); Estimated Glomerular Filt Rate 103 ml/min (>60); GFR (African American) 124 ML/MIN (>60); Globulin 3.2 g/dL (1.3-3.2); Glucose 106 mg/dl (74-100); Total Protein,Serum 8.9 g/dl (6.3-8.2)
[2020-09-19 11:12] LABS: INR 0.84 (0.9-1.1)
[2020-09-19 11:13] LABS: Activated Partial Thrombo Time 26.8 seconds (22.8-30.6)
[2020-09-19 11:41] VITALS: BP 118/77; PULSE 87; RESP 16; O2SAT 97
[2020-09-19 12:41] VITALS: BP 128/84; PULSE 91; RESP 18; O2SAT 98
[2020-09-19 13:07] VITALS: BP 128/64; PULSE 78; RESP 16; TEMP 36.6; O2SAT 98
== END 2020-09-19 13:08 | disposition home or self-care (01) ==
PROVIDERS: Emergency Provider Emergency Medicine; PCP Emergency Medicine
DX: L76.32 Postprocedural hematoma of skin and subcutaneous tissue following other procedure (principal); N64.89 Other specified disorders of breast; I10 Essential (primary) hypertension; E78.5 Hyperlipidemia, unspecified; E03.9 Hypothyroidism, unspecified; F17.210 Nicotine dependence, cigarettes, uncomplicated
CPT/HCPCS: 71260; 80053; 85025; 85610; 85730; 99282; Q9967

== ENCOUNTER → 2020-11-01 09:54 | Outpatient (CLI) | payer MEDICAID, SELFPAY ==
--- NOTE | 2020-11-01 09:54 | US_ITS ---
PROCEDURE: US FNA BREAST CLINICAL INDICATION: Breast cancer, seroma COMPARISON: CT CT CHEST W CON from 09/19/2020 CT CHEST W from 09/19/2020 FINDINGS: Pre FNA ultrasound demonstrated a heterogeneous mass in the 12 o'clock region of the left breast measuring approximately 7 x 4 cm. A small cystic component is present along the dorsal aspect of this mass. There is some enhanced through transmission of sound. Following obtaining informed consent and time-out procedure under aseptic conditions and local anesthesia 1 percent buffered lidocaine, FNA was attempted of the solid-appearing component. No liquid aspirate was able to be obtained. Aspiration was then performed of the cystic appearing component posteriorly. Approximately 15 mL of dark bloody fluid was aspirated. The patient tolerated the procedure well without evidence of immediate complications and left radiology suite in stable condition. IMPRESSION: Uneventful ultrasound-guided aspiration of the cystic component of the left breast mass. There is a 7 by 4 cm heterogeneous mass of the left breast consistent with a large hematoma. There was only slight decrease in the overall size of this lesion following aspiration of the cystic component Dictated by: Bon Fuentes MD 11/15/2020 09:44 Bon Fuentes MD in [place] 11/15/2020 09:44
== END ==
PROVIDERS: PCP Emergency Medicine; Visit Provider Surgery
DX: N64.89 Other specified disorders of breast (principal)
CPT/HCPCS: 10005

== ENCOUNTER 2020-11-03 20:42 | Emergency (ER) | payer MEDICAID, SELFPAY ==
[2020-11-03 20:50] VITALS: BP 121/75; PULSE 65; RESP 18; TEMP 36.8; O2SAT 98; BMI 22.0
[2020-11-03 21:09] LABS: Basophils % 0.2 % (0.1-2.0); Eosinophils # 0.1 K/mm3 (0.0-0.4); Eosinophils % 0.6 % (0.1-12.0); Hematocrit 44.4 % (37.0-47.0); Lymphocytes # 0.9 K/mm3 (0.7-4.5); Lymphocytes % 6.3 % (10-50); Mean Corpuscular HGB Conc 33.8 g/dL (31.8-35.4); Mean Corpuscular Hemoglobin 34.8 pg (27.0-31.2); Mean Corpuscular Volume 102.8 fl (81-99); Mean Platelet Volume 7.8 fl (7.4-10.4); Monocytes # 0.4 K/mm3 (0.1-1.0); Monocytes % 2.9 % (1.7-9.3); Neutrophils # 12.8 K/mm3 (1.8-7.8); Platelet Count 150 K/mm3 (142-424); Red Blood Count 4.32 M/mm3 (4.20-5.40); Red Cell Distribution Width 12.8 % (11.5-17.5); White Blood Count 14.2 K/mm3 (4.8-10.8)
[2020-11-03 21:11] LABS: MANUAL DIFFERENTIAL MANUAL DIFFERENTIAL (MANUAL DIFF)
[2020-11-03 21:17] LABS: Alanine Aminotransferase 45 U/L (12-78); Albumin/Globulin Ratio 1.5 (1.1-1.8); Alkaline Phosphatase 115 U/L (38-126); Amylase 91 U/L (30-110); Anion Gap 18.4 mEq/L (5-15); Aspartate Amino Transferase 54 U/L (14-36); Bilirubin,Total 0.6 mg/dl (0.2-1.3); Blood Urea Nitrogen 27 mg/dl (7-17); Calcium 10.1 mg/dl (8.4-10.2); Carbon Dioxide 24 mmol/L (22.0-30.0); Chloride 99 mmol/L (98-107); Creatinine Clearance Estimated 53 mL/min (50-200); Estimated Glomerular Filt Rate 46 ml/min (>60); GFR (African American) 56 ML/MIN (>60); Globulin 3.4 g/dL (1.3-3.2); Glucose 123 mg/dl (74-100); Lipase 174 U/L (23-300); Potassium 3.4 mmoL/L (3.5-5.1); Sodium 138 mmol/L (136-145); Total Protein,Serum 8.4 g/dl (6.3-8.2)
--- NOTE | 2020-11-03 21:18 | CT_ITS ---
PROCEDURE INFORMATION: Exam: CT Abdomen And Pelvis With Contrast Exam date and time: 11/03/2020 9:18 PM Age: 59 years old Clinical indication: Abdominal pain; Additional info: Ruq pain / right flank pain TECHNIQUE: Imaging protocol: Computed tomography of the abdomen and pelvis with contrast. Total images: 268 Radiation optimization: All CT scans at this facility use at least one of these dose optimization techniques: automated exposure control; mA and/or kV adjustment per patient size (includes targeted exams where dose is matched to clinical indication); or iterative reconstruction. Contrast material: ISOVUE; Contrast volume: 75 ml; Contrast route: IV; COMPARISON: CT ABDOMEN PELVIS W CON 08/17/2020 10:54 AM FINDINGS: Pleural spaces: Dense focal pleural base calcification adjacent to the right middle lobe is unchanged and has a benign appearance. Liver: Hepatic steatosis is evident. Gallbladder and bile ducts: Normal. No calcified stones. No ductal dilation. Pancreas: Normal. No ductal dilation. Spleen: Incidental splenule with unremarkable spleen. Adrenal glands: Normal. No mass. Kidneys and ureters: Nonspecific low-density foci of the kidneys statistically favor benign cysts, no follow-up imaging is recommended, as large as 9 mm. Urothelial thickening and inflammation in the region of the right renal pelvis is concerning for ascending pyelitis. Mild perinephric edema on the right is associated with questionable subtle decreased renal cortical enhancement and could be early evidence of pyelonephritis. Stomach and bowel: Unremarkable. No obstruction. No mucosal thickening. Appendix: Normal appendix. Intraperitoneal space: Unremarkable. No free air. No significant fluid collection. Vasculature: Atherosclerosis is evident. Lymph nodes: Unremarkable. No enlarged lymph nodes. Urinary bladder: Question urinary bladder wall thickening/inflammation, possibly cystitis. Reproductive: Prior hysterectomy noted. Bones/joints: Facet joint degenerative changes are present. Mild disc space height loss at L5/S1. Multifocal neural foraminal stenosis, due to degeneration. Soft tissues: Unremarkable. Other findings: Incidental pelvic phleboliths. IMPRESSION: 1. Urothelial thickening and inflammation in the region of the right renal pelvis is concerning for ascending pyelitis. Mild perinephric edema on the right is associated with questionable subtle decreased renal cortical enhancement and could be early evidence of pyelonephritis. Recommend urinalysis. 2. Normal appendix. 3. Question urinary bladder wall thickening/inflammation, possibly cystitis. Recommend urinalysis. COMMENTS: Consistent with the [employer]'s Incidental Findings Committee white paper (J Am Georgie Radiol 2018): Any incidental renal lesion less than 1 cm or classified as too small to characterize, or any incidental cystic renal lesion characterized as simple-appearing, is likely benign. No follow-up imaging is recommended for these lesions per consensus recommendations based on imaging criteria.
[2020-11-03 21:22] LABS: Lymphocytes % 9 % (10-50); Monocytes % 2 % (2-9); Neutrophils % 89 % (42-76); Platelet Estimate Normal; RBC Morphology Normal; Total Cells Counted 100
--- NOTE | 2020-11-03 21:49 | HMH.EDGENADL ---
ED Disposition Clinical Impression: Pyelonephritis Disposition: Home, Self-Care Condition on Discharge: Good Instructions: DI for Kidney Infection Prescriptions: Sulfamethoxazole/Trimethoprim [Bactrim DS tablet] 1 each PO BID #14 tab Prescription Printed Ondansetron [Zofran 4mg ODT] 4 mg PO TIDP PRN #8 tab PRN Reason: Nausea Prescription Printed Referrals: [place] MD [Primary Care Provider] - - Critical Care Critical Care Time: No Attestation: On 11/03/20, the high probability of a clinically significant, sudden or life threatening deterioration of the following system(s) required my full and direct attention, intervention and personal management. The time I documented below is in addition to time spent performing reported procedures but includes the following listed in this critical care notation. Medical Decision Making - Medical Records Medical records reviewed: Yes: I reviewed the patient's medical records. - Grabiel Inquiry Pt receiving controlled substance: No Vital Signs: 11/03/20 20:50 11/03/20 22:01 Temperature 98.2 F Temperature Source Oral Pulse Rate 97 H Pulse Rate [Right Brachial] 65 Respiratory Rate 18 Blood Pressure 104/70 L Blood Pressure [Right Arm] 121/75 Blood Pressure Mean 80 Blood Pressure Mean [Right Arm] 90 Blood Pressure Source [Right Arm] Automatic Cuff Blood Pressure Position [Right Arm] Sitting 02 Sat by Pulse Oximetry 98 98 Oxygen Delivery Method Room Air - Lab Data Lab Results 11/03/20 21:00: WBC 14.2 H, RBC 4.32, Hgb 15.0, Hct 44.4, MCV 102.8 H, MCH 34.8 H, MCHC 33.8, RDW 12.8, Plt Count 150, MPV 7.8, Neut % (Auto) 90.0 H, Lymph % (Auto) 6.3 L, [place] % (Auto) 2.9, Eos % (Auto) 0.6, Baso % (Auto) 0.2, Neut # (Auto) 12.8 H, Lymph # (Auto) 0.9, [place] # (Auto) 0.4, Eos # (Auto) 0.1, Baso # (Auto) 0.0, Total Counted 100, Neutrophils % (Manual) 89 H, Lymphocytes % (Manual) 9 L, Monocytes % (Manual) 2, Platelet Estimate Normal, RBC Morphology Normal 11/03/20 21:00: Sodium 138, Potassium 3.4 L, Chloride 99, Carbon Dioxide 24, Anion Gap 18.4 H, BUN 27 H, Creatinine 1.20 H, Estimated Creat Clear 53, Estimated GFR 46 L, Est GFR ( Amer) 56 L, Glucose 123 H, Calcium 10.1, Total Bilirubin 0.6, AST 54 H, ALT 45, Alkaline Phosphatase 115, Total Protein 8.4 H, Albumin 5.0, Globulin 3.4 H, Albumin/Globulin Ratio 1.5, Amylase 91, Lipase 174 11/03/20 23:00: Urine Color Yellow, Urine Appearance Sl cloudy, Urine pH 5.5, Ur Specific Hunker 1.025, Urine Protein 2+, Urine Glucose (UA) Negative, Urine Ketones Negative, Urine Blood 3+, Urine Nitrate Negative, Urine Bilirubin Negative, Urine Urobilinogen 0.2, Ur Leukocyte Esterase 1+ A, Urine RBC 5-10, Urine WBC 20-50, Ur Squamous Epith Cells 5-10, Urine Bacteria 4+ Result diagrams: 11/03/20 21:00 11/03/20 21:00 Orders (Tests/Meds): ED MEDICATIONS Generic Name Dose Route Start Last Admin Trade Name Freq PRN Reason Stop Dose Admin Lactated Ringer's 1,000 mls @ 999 mls/hr 11/03/20 23:30 11/04/20 00:06 Lactated Ringer's 1000 Ml Bag IV 11/04/20 00:30 999 mls/hr .Q1H1M KRISTINE Administration Ceftriaxone Sodium 1 gm/ 50 mls @ 100 mls/hr 11/04/20 01:30 11/04/20 01:33 Sodium Chloride IV 11/18/20 01:29 100 mls/hr Q24H KRISTINE Administration Protocol Discontinued Medications Generic Name Dose Route Start Last Admin Trade Name Freq PRN Reason Stop Dose Admin Fluconazole 200 mg 11/04/20 09:00 Fluconazole 200mg Tablet PO 11/11/20 08:59 DAILY KRISTINE Protocol Fluconazole 200 mg 11/04/20 01:36 11/04/20 01:37 Fluconazole 100mg Tablet PO 11/04/20 01:37 200 mg ONCE ONE Administration Protocol Iopamidol 75 ml 11/04/20 00:42 11/04/20 00:43 Iopamidol-370 (76%);100ml Bottle IV 11/04/20 00:43 75 ml ONCE ONE Administration Sodium Chloride 10 ml 11/04/20 00:43 11/04/20 00:43 Sodium Chloride 0.9% 10ml Syr (Rad Only) IV 11/04/20 00:44 10 ml ONCE ONE Ad
[2020-11-03 22:01] VITALS: BP 104/70; PULSE 97; O2SAT 98
[2020-11-03 23:10] LABS: Microscopic, Urine URINE MICROSCOPIC (MICROSCOPIC)
[2020-11-03 23:11] LABS: Appearance,Urine SL CLOUDY (Clear); Bilirubin,Urine Negative (Negative); Blood, Urine 3+ (Negative); Color,Urine YELLOW (Yellow); Glucose,Urine (UA) Negative (Negative); Ketones,Urine Negative (Negative); Leukocyte Esterase,Urine 1+ (Negative); Nitrate,Urine Negative (Negative); PH,Urine 5.5 (5.0-8.5); Protein,Urine 2+ (Negative); Specific Gravity, Urine 1.025 (1.005-1.030); Urobilinogen,Urine 0.2 EU/dl (0.2)
[2020-11-03 23:20] LABS: Bacteria,Urine 4+ /lpf; WBC,Urine 20-50 #/hpf (0-3)
[2020-11-04 01:55] VITALS: BP 127/67; PULSE 65; RESP 18; TEMP 36.8; O2SAT 98
== END 2020-11-04 01:56 | disposition home or self-care (01) ==
PROVIDERS: Emergency Provider Emergency Medicine; PCP Emergency Medicine
DX: N12 Tubulo-interstitial nephritis, not specified as acute or chronic (principal); E03.9 Hypothyroidism, unspecified; I10 Essential (primary) hypertension; E78.5 Hyperlipidemia, unspecified; F17.210 Nicotine dependence, cigarettes, uncomplicated; Z79.899 Other long term (current) drug therapy
CPT/HCPCS: 74177; 80053; 81001; 82150; 83690; 85007; 85025; 87086; 87088; 87186; 96365; 99283; Q9967

== ENCOUNTER → 2021-05-17 08:49 | Outpatient (CLI) | payer MEDICAID, SELFPAY ==
[2021-05-17 09:18] LABS: Basophils # 0.1 K/mm3 (0-0.2); Basophils % 0.8 % (0.1-2.0); Eosinophils # 0.2 K/mm3 (0.0-0.4); Eosinophils % 1.7 % (0.1-12.0); Hematocrit 42.4 % (37.0-47.0); Hemoglobin 14.5 g/dL (12.2-16.2); Lymphocytes # 2.2 K/mm3 (0.7-4.5); Lymphocytes % 16.9 % (10-50); Mean Corpuscular HGB Conc 34.3 g/dL (31.8-35.4); Mean Corpuscular Hemoglobin 35.1 pg (27.0-31.2); Mean Corpuscular Volume 102.5 fl (81-99); Mean Platelet Volume 7.9 fl (7.4-10.4); Monocytes # 0.5 K/mm3 (0.1-1.0); Monocytes % 3.5 % (1.7-9.3); Neutrophils % 77.2 % (37.0-80.0); Platelet Count 276 K/mm3 (142-424); Red Blood Count 4.14 M/mm3 (4.20-5.40); Red Cell Distribution Width 12.7 % (11.5-17.5); White Blood Count 12.9 K/mm3 (4.8-10.8)
[2021-05-17 11:05] LABS: Alanine Aminotransferase 41 U/L (12-78); Albumin Level 4.6 g/dl (3.5-5.0); Albumin/Globulin Ratio 1.7 (1.1-1.8); Alkaline Phosphatase 76 U/L (38-126); Anion Gap 16.2 mEq/L (5-15); Aspartate Amino Transferase 59 U/L (14-36); Bilirubin,Total 0.4 mg/dl (0.2-1.3); Blood Urea Nitrogen 21 mg/dl (7-17); Carbon Dioxide 24 mmol/L (22.0-30.0); Chloride 101 mmol/L (98-107); Estimated Glomerular Filt Rate 73 ml/min (>60); GFR (African American) 89 ML/MIN (>60); Globulin 2.7 g/dL (1.3-3.2); Glucose 70 mg/dl (74-100); Potassium 4.2 mmoL/L (3.5-5.1); Sodium 137 mmol/L (136-145); Total Protein,Serum 7.3 g/dl (6.3-8.2)
== END ==
PROVIDERS: Visit Provider Internal Medicine Medical Oncology
DX: D05.10 Intraductal carcinoma in situ of unspecified breast (principal)
CPT/HCPCS: 36415; 80053; 85025

== ENCOUNTER → 2021-06-30 07:52 | Outpatient (CLI) | payer MEDICAID, SELFPAY ==
--- NOTE | 2021-06-30 07:58 | MM_ITS ---
PROCEDURE INFORMATION: Exam: MG Bilateral Diagnostic Breast Tomosynthesis Exam date and time: 06/30/2021 7:58 AM Age: 60 years old Clinical indication: Personal history of malignant neoplasm of breast TECHNIQUE: Imaging protocol: Bilateral Diagnostic tomosynthesis and 2D mammography including computer-aided detection (CAD) when performed. Unilateral or bilateral exam. COMPARISON: 1. MG MM SURGICAL SPECIMEN LT 08/24/2020 9:43 AM 2. MG MM NEEDLE LOC LT 08/24/2020 8:18 AM FINDINGS: MAMMOGRAPHY: The breast tissue is extremely dense, which lowers the sensitivity of mammography. There is no stellate mass, architectural distortion or suspicious microcalcifications in either breast to suggest malignancy. 3.4 cm round mass in the left upper outer quadrant lumpectomy site likely reflects a postoperative seroma. No suspicious skin thickening or axillary adenopathy. IMPRESSION: Patient to be recalled for left breast ultrasound for further evaluation a probably benign mass within the left lumpectomy site ASSESSMENT: BI-RADS Category 0: Incomplete- Need Additional Imaging Evaluation and/or Prior Mammograms for Comparison
--- NOTE | 2021-06-30 07:59 | XR_ITS ---
FINAL REPORT TECHNIQUE: Bone mineral density was calculated of the lumbar spine and hip. CLINICAL HISTORY: POST MENOPAUSAL FINDINGS: Using L1-4, the bone mineral density of the spine is 0.976 g/cm2, corresponding to T-score of -0.7. Using the left hip, the bone mineral density of the femoral neck is 0.811 g/cm2, corresponding to a T-score of -0.3. Using the right hip, the bone mineral density of the femoral neck is 0.678 g/cm2, corresponding to a T-score of -1.5. NOTE: T-score: Standard deviation compared with peak bone mass of young adult mean. *Following the recommendations of the International Society of Bone densitometry, classification of hip BMD is based on the lower of two T-scores; total hip or femoral neck. IMPRESSION: Normal bone mineral density of the lumbar spine and left hip. Diminished bone mineral density of the right femoral neck consistent with osteopenia. Reviewed, Interpreted and Dictated by Nikolas Andujar MD Transcribed by Carley Lechuga Authenticated by Nikolas Andujar MD on 07/04/2021 12:13:[address] [facility]
== END ==
PROVIDERS: PCP Emergency Medicine; Visit Provider Internal Medicine Medical Oncology
DX: C50.919 Malignant neoplasm of unspecified site of unspecified female breast (principal); Z78.0 Asymptomatic menopausal state
CPT/HCPCS: 77062; 77066; 77080; G0279

== ENCOUNTER → 2021-07-10 13:02 | Outpatient (CLI) | payer MEDICAID, SELFPAY ==
--- NOTE | 2021-07-10 13:06 | US_ITS ---
PROCEDURE INFORMATION: Exam: US Left Breast, Complete Exam date and time: 07/10/2021 1:06 PM Age: 60 years old Clinical indication: F/u hematoma vs seroma; Ltlumpectomy breast CA TECHNIQUE: Imaging protocol: Complete ultrasound of all four quadrants of the Left breast and the retroareolar regions, including ultrasound of the axilla when performed. COMPARISON: US FNA BREAST 11/01/2020 10:22 AM FINDINGS: Breast: Sonographic images of the left 12 o'clock axis in the region of palpable concern demonstrates a 3.6 x 2.5 x 3.8 cm heterogeneous hypoechoic mass the finding is smaller compared to prior examination dated 11/01/2020 and is most consistent with a resolving hematoma. Sonographic images the remainder of the left breast do not demonstrate any solid or cystic masses. No axillary adenopathy. IMPRESSION: Slowly resolving hematoma in the left breast.Annual bilateral mammographic screening is recommended unless otherwise clinically indicated. ASSESSMENT: BI-RADS Category 2: Benign
== END ==
PROVIDERS: PCP Emergency Medicine; Visit Provider Internal Medicine Medical Oncology
DX: N64.89 Other specified disorders of breast (principal)
CPT/HCPCS: 76641

== ENCOUNTER → 2021-12-06 06:28 | Outpatient (CLI) | payer MEDICAID, SELFPAY ==
[2021-12-05 18:43] LABS: Basophils # 0.2 K/mm3 (0-0.2); Basophils % 2.4 % (0.1-2.0); Eosinophils # 0.1 K/mm3 (0.0-0.4); Eosinophils % 1.3 % (0.1-12.0); Hematocrit 39.4 % (37.0-47.0); Hemoglobin 13.3 g/dL (12.2-16.2); Lymphocytes # 1.7 K/mm3 (0.7-4.5); Lymphocytes % 27.9 % (10-50); Mean Corpuscular HGB Conc 33.7 g/dL (31.8-35.4); Mean Corpuscular Hemoglobin 35.9 pg (27.0-31.2); Mean Corpuscular Volume 106.7 fl (81-99); Mean Platelet Volume 8.6 fl (7.4-10.4); Monocytes # 0.3 K/mm3 (0.1-1.0); Monocytes % 4.1 % (1.7-9.3); Neutrophils % 64.3 % (37.0-80.0); Platelet Count 209 K/mm3 (142-424); Red Cell Distribution Width 14.2 % (11.5-17.5); White Blood Count 6.2 K/mm3 (4.8-10.8)
[2021-12-05 19:16] LABS: Alanine Aminotransferase 67 U/L (12-78); Albumin/Globulin Ratio 1.5 (1.1-1.8); Alkaline Phosphatase 123 U/L (38-126); Anion Gap 13.2 mEq/L (5-15); Aspartate Amino Transferase 127 U/L (14-36); Bilirubin,Total 0.2 mg/dl (0.2-1.3); Blood Urea Nitrogen 18 mg/dl (7-17); Calcium 9.3 mg/dl (8.4-10.2); Carbon Dioxide 24 mmol/L (22.0-30.0); Chloride 102 mmol/L (98-107); Chol/HDL Ratio 3.9 (1-3.5); Cholesterol 184 mg/dl (140-200); Estimated Glomerular Filt Rate 73 ml/min (>60); GFR (African American) 89 ML/MIN (>60); Globulin 2.7 g/dL (1.3-3.2); Glucose 105 mg/dl (74-100); HDL Cholesterol 47 mg/dl (40-60); Potassium 3.2 mmoL/L (3.5-5.1); Sodium 136 mmol/L (136-145); Total Protein,Serum 6.7 g/dl (6.3-8.2)
[2021-12-05 19:25] LABS: Triglycerides 856 mg/dl (30-150)
[2021-12-05 19:33] LABS: 25-OH Vitamin D, Total 17.4 ng/mL (30-100)
[2021-12-05 19:48] LABS: Thyroid Stimulating Hormone 2.12 uIU/mL (0.465-4.68)
== END ==
PROVIDERS: PCP Nurse Practitioner Family; Visit Provider Nurse Practitioner Family
DX: E03.9 Hypothyroidism, unspecified (principal); E55.9 Vitamin D deficiency, unspecified; E78.5 Hyperlipidemia, unspecified; I10 Essential (primary) hypertension
CPT/HCPCS: 80053; 80061; 82306; 84436; 84443; 85025

== ENCOUNTER → 2022-05-22 09:34 | Outpatient (CLI) | payer MEDICAID, SELFPAY ==
[2022-05-22 10:14] LABS: Basophils # 0.1 K/mm3 (0-0.2); Basophils % 0.7 % (0.1-2.0); Eosinophils # 0.1 K/mm3 (0.0-0.4); Eosinophils % 0.6 % (0.1-12.0); Hematocrit 46.9 % (37.0-47.0); Hemoglobin 15.3 g/dL (12.2-16.2); Lymphocytes # 1.8 K/mm3 (0.7-4.5); Mean Corpuscular HGB Conc 32.6 g/dL (31.8-35.4); Mean Corpuscular Hemoglobin 34.6 pg (27.0-31.2); Mean Corpuscular Volume 106.2 fl (81-99); Mean Platelet Volume 8.1 fl (7.4-10.4); Monocytes # 0.4 K/mm3 (0.1-1.0); Monocytes % 3.5 % (1.7-9.3); Neutrophils # 9.8 K/mm3 (1.8-7.8); Neutrophils % 80.2 % (37.0-80.0); Platelet Count 262 K/mm3 (142-424); Red Blood Count 4.42 M/mm3 (4.20-5.40); Red Cell Distribution Width 13.1 % (11.5-17.5); White Blood Count 12.2 K/mm3 (4.8-10.8)
[2022-05-22 10:30] LABS: Chloride 99 mmol/L (98-107)
[2022-05-22 10:31] LABS: Potassium 3.4 mmoL/L (3.5-5.1); Sodium 137 mmol/L (136-145)
[2022-05-22 10:33] LABS: Alanine Aminotransferase 53 U/L (12-78); Alkaline Phosphatase 154 U/L (38-126); Aspartate Amino Transferase 113 U/L (14-36); Bilirubin,Total 1.4 mg/dl (0.2-1.3); Blood Urea Nitrogen 24 mg/dl (7-17); Estimated Glomerular Filt Rate 73 ml/min (>60); GFR (African American) 89 ML/MIN (>60)
[2022-05-22 10:34] LABS: Albumin Level 4.9 g/dl (3.5-5.0); Albumin/Globulin Ratio 1.6 (1.1-1.8); Anion Gap 16.4 mEq/L (5-15); Calcium 9.9 mg/dl (8.4-10.2); Carbon Dioxide 25 mmol/L (22.0-30.0); Glucose 91 mg/dl (74-100); Total Protein,Serum 7.9 g/dl (6.3-8.2)
== END ==
PROVIDERS: PCP Emergency Medicine; Visit Provider Internal Medicine Medical Oncology
DX: D05.12 Intraductal carcinoma in situ of left breast (principal)
CPT/HCPCS: 36415; 80053; 85025

== ENCOUNTER → 2022-06-06 09:33 | Outpatient (CLI) | payer MEDICAID, SELFPAY ==
--- NOTE | 2022-06-06 09:37 | US_ITS ---
FINAL REPORT CLINICAL HISTORY: ELEVATED LIVER ENZYMES FINDINGS: Sonographic images of the right upper quadrant were obtained. The pancreas is partially obscured.The liver has an unremarkable appearance.The gallbladder appears normal without evidence of gallstones.There is no evidence of biliary ductal dilatation.The common duct measures 3 mm. The right kidney measures 8.6 cm in length. A 1.4 cm decreased echogenicity mass in the right kidney does not appear to be a simple cyst. IMPRESSION: 1.4 cm decreased echogenicity mass in the right kidney does not appear to be simple cyst. Recommend renal mass protocol CT for further evaluation. Reviewed, Interpreted and Dictated by Elbert Gordon III, MD Transcribed by Carley Lechuga Authenticated and [facility]
== END ==
PROVIDERS: PCP Emergency Medicine; Visit Provider Internal Medicine Medical Oncology
DX: R74.8 Abnormal levels of other serum enzymes (principal); Z85.3 Personal history of malignant neoplasm of breast
CPT/HCPCS: 76705

== ENCOUNTER → 2022-06-13 15:49 | Outpatient (CLI) | payer MEDICAID, SELFPAY ==
--- NOTE | 2022-06-13 15:53 | MM_ITS ---
PROCEDURE INFORMATION: Exam: MG Bilateral Screening 3D Mammography Exam date and time: 06/13/2022 3:47 PM Age: 61 years old Clinical indication: Screening mammogram. left lumpectomy for breast cancer TECHNIQUE: Imaging protocol: Bilateral Screening tomosynthesis and 2D mammography including computer-aided detection (CAD) when performed. COMPARISON: 1. MG MM DIG MAMM BI DX W/CAD 06/30/2021 8:01 AM 2. MG MM SURGICAL SPECIMEN LT 08/24/2020 9:43 AM 3. MG MM NEEDLE LOC LT 08/24/2020 8:18 AM 4. MG DIGMAMMS MAMMOGRAM SCREEN-FLOWER MAKER N/C 05/21/2007 10:46 AM FINDINGS: MAMMOGRAPHY: Breast composition: The breast tissue is extremely dense, which lowers the sensitivity of mammography. Mass: Presumed upper outer lumpectomy bed seroma has diminished in size. Architectural distortion: No new or suspicious architectural distortion. Calcifications: No new or suspicious calcifications are present Asymmetric density: No new or suspicious asymmetric density is present Skin thickening: None. Axillary adenopathy: None. IMPRESSION: No mammographic evidence of malignancy. Recommend annual screening mammography unless otherwise clinically indicated. ASSESSMENT: BI-RADS category 2: Benign
== END ==
PROVIDERS: PCP Emergency Medicine; Visit Provider Internal Medicine Medical Oncology
DX: Z12.31 Encounter for screening mammogram for malignant neoplasm of breast (principal)
CPT/HCPCS: 77063; 77067

== ENCOUNTER → 2022-06-14 13:41 | Outpatient (CLI) | payer MEDICAID, SELFPAY ==
[2022-06-14 15:14] LABS: Blood Urea Nitrogen 7 mg/dl (7-17); Estimated Glomerular Filt Rate 64 ml/min (>60); GFR (African American) 77 ML/MIN (>60)
== END ==
PROVIDERS: PCP Emergency Medicine; Visit Provider Internal Medicine Medical Oncology
DX: Z01.812 Encounter for preprocedural laboratory examination (principal)
CPT/HCPCS: 36415; 82565; 84520

== ENCOUNTER → 2022-06-15 08:38 | Outpatient (CLI) | payer MEDICAID, SELFPAY ==
--- NOTE | 2022-06-15 08:40 | CT_ITS ---
FINAL REPORT TECHNIQUE: Axial CT images of the abdomen and pelvis were obtained before and after the administration of IV contrast. Oral contrast was administered.This study was performed with techniques to keep radiation doses as low as reasonably achievable (ALARA). Individualized dose reduction techniques using automated exposure control or adjustment of mA and/or kV according to the patient''s size were employed. CLINICAL HISTORY: ELEVATED LIVER ENZYMES,RENAL CELL PROTOCOL COMPARISON: 11/04/2020 FINDINGS: Abdomen: The lung bases demonstrate mild bibasilar atelectasis or scarring.. The heart is normal in size. There is a low-attenuation area in the medial segment of the left hepatic lobe measuring 25 mm which may represent focal fatty infiltration due to the presence of vessels coursing throughout. . The spleen is unremarkable. No adrenal masses present. The pancreas has an unremarkable appearance. There are stable, less than 1 cm bilateral renal masses likely representing small cysts. There is mild right renal scarring. Kidneys otherwise demonstrate normal enhancement. The aorta is normal in caliber. There is no free fluid or adenopathy. No mass or abnormal fluid collection is seen. There is a small umbilical hernia containing fat. Precontrast images demonstrate no evidence of nephrolithiasis. Pelvis: The appendix is normal. Patient is status post hysterectomy. There is sigmoid diverticulosis without evidence of diverticulitis. The urinary bladder is unremarkable. No inflammatory process is seen. There is no evidence of mass or adenopathy. There is no evidence of bowel obstruction. IMPRESSION: Stable, less than 1 cm bilateral renal masses, favor small cysts. Reviewed, Interpreted and Dictated by Elbert Gordon III, MD Transcribed by Cecilia Hall Authenticated and [facility]
== END ==
PROVIDERS: PCP Emergency Medicine; Visit Provider Internal Medicine Medical Oncology
DX: Z01.812 Encounter for preprocedural laboratory examination (principal); R74.8 Abnormal levels of other serum enzymes
CPT/HCPCS: 74178; Q9967

== ENCOUNTER → 2022-11-14 08:39 | Outpatient (CLI) | payer MEDICAID, SELFPAY ==
[2022-11-14 09:20] LABS: Basophils % 0.4 % (0.1-2.0); Eosinophils # 0.2 K/mm3 (0.0-0.4); Eosinophils % 2.6 % (0.1-12.0); Hematocrit 43.4 % (37.0-47.0); Hemoglobin 14.1 g/dL (12.2-16.2); Lymphocytes # 1.6 K/mm3 (0.7-4.5); Lymphocytes % 21.4 % (10-50); Mean Corpuscular HGB Conc 32.4 g/dL (31.8-35.4); Mean Corpuscular Hemoglobin 35.6 pg (27.0-31.2); Mean Corpuscular Volume 109.9 fl (81-99); Mean Platelet Volume 8.4 fl (7.4-10.4); Monocytes # 0.4 K/mm3 (0.1-1.0); Monocytes % 5.2 % (1.7-9.3); Neutrophils # 5.1 K/mm3 (1.8-7.8); Neutrophils % 70.4 % (37.0-80.0); Platelet Count 237 K/mm3 (142-424); Red Blood Count 3.95 M/mm3 (4.20-5.40); Red Cell Distribution Width 13.9 % (11.5-17.5); White Blood Count 7.3 K/mm3 (4.8-10.8)
[2022-11-14 09:35] LABS: Alanine Aminotransferase 31 U/L (12-78); Albumin Level 4.9 g/dl (3.5-5.0); Alkaline Phosphatase 120 U/L (38-126); Anion Gap 17.7 mEq/L (5-15); Aspartate Amino Transferase 61 U/L (14-36); Bilirubin,Total 0.7 mg/dl (0.2-1.3); Blood Urea Nitrogen 9 mg/dl (7-17); Calcium 10.2 mg/dl (8.4-10.2); Carbon Dioxide 23 mmol/L (22.0-30.0); Chloride 100 mmol/L (98-107); Estimated Glomerular Filt Rate 126 ml/min (>60); GFR (African American) 152 ML/MIN (>60); Globulin 2.4 g/dL (1.3-3.2); Glucose 88 mg/dl (74-100); Potassium 3.7 mmoL/L (3.5-5.1); Sodium 137 mmol/L (136-145); Total Protein,Serum 7.3 g/dl (6.3-8.2)
== END ==
PROVIDERS: PCP Emergency Medicine; Visit Provider Internal Medicine Medical Oncology
DX: D05.12 Intraductal carcinoma in situ of left breast (principal); R94.5 Abnormal results of liver function studies; R74.8 Abnormal levels of other serum enzymes
CPT/HCPCS: 36415; 80053; 85025

== ENCOUNTER → 2022-12-07 23:20 | Outpatient (CLI) | payer MEDICAID, SELFPAY ==
[2022-12-07 17:47] LABS: Basophils % 0.4 % (0.1-2.0); Eosinophils # 0.2 K/mm3 (0.0-0.4); Eosinophils % 1.8 % (0.1-12.0); Hematocrit 47.9 % (37.0-47.0); Hemoglobin 15.2 g/dL (12.2-16.2); Lymphocytes % 18.9 % (10-50); Mean Corpuscular HGB Conc 31.8 g/dL (31.8-35.4); Mean Corpuscular Volume 110.1 fl (81-99); Mean Platelet Volume 9.9 fl (7.4-10.4); Monocytes # 0.5 K/mm3 (0.1-1.0); Monocytes % 4.9 % (1.7-9.3); Neutrophils # 7.6 K/mm3 (1.8-7.8); Platelet Count 276 K/mm3 (142-424); Red Blood Count 4.35 M/mm3 (4.20-5.40); White Blood Count 10.3 K/mm3 (4.8-10.8)
[2022-12-07 17:55] LABS: Alanine Aminotransferase 30 U/L (12-78); Albumin Level 4.9 g/dl (3.5-5.0); Albumin/Globulin Ratio 1.7 (1.1-1.8); Alkaline Phosphatase 114 U/L (38-126); Anion Gap 15.9 mEq/L (5-15); Aspartate Amino Transferase 53 U/L (14-36); Bilirubin,Total 0.6 mg/dl (0.2-1.3); Blood Urea Nitrogen 13 mg/dl (7-17); Calcium 10.2 mg/dl (8.4-10.2); Carbon Dioxide 25 mmol/L (22.0-30.0); Chloride 101 mmol/L (98-107); Cholesterol 244 mg/dl (140-200); Estimated Glomerular Filt Rate 85 ml/min (>60); GFR (African American) 103 ML/MIN (>60); Globulin 2.9 g/dL (1.3-3.2); Glucose 102 mg/dl (74-100); HDL Cholesterol 61 mg/dl (40-60); Potassium 3.9 mmoL/L (3.5-5.1); Sodium 138 mmol/L (136-145); Total Protein,Serum 7.8 g/dl (6.3-8.2)
[2022-12-07 17:58] LABS: Triglycerides 416 mg/dl (30-150)
[2022-12-07 18:05] LABS: Direct LDL Cholesterol 123.66 mg/dL (100-129)
[2022-12-07 18:11] LABS: 25-OH Vitamin D, Total 44.7 ng/mL (30-100)
[2022-12-07 18:24] LABS: Thyroid Stimulating Hormone 2.63 uIU/mL (0.465-4.68)
== END ==
PROVIDERS: PCP Nurse Practitioner Family; Visit Provider Nurse Practitioner Family
DX: E03.9 Hypothyroidism, unspecified (principal); E55.9 Vitamin D deficiency, unspecified; Z79.899 Other long term (current) drug therapy
CPT/HCPCS: 80053; 80061; 82306; 84443; 85025

== ENCOUNTER → 2023-01-04 14:58 | Outpatient (CLI) | payer MEDICAID, SELFPAY | PROVIDERS: PCP Emergency Medicine; Visit Provider Nurse Practitioner Family | DX: R06.02 Shortness of breath (principal); R01.1 Cardiac murmur, unspecified | CPT/HCPCS: 93306 ==

== ENCOUNTER → 2023-01-28 12:11 | Outpatient (CLI) | payer MEDICAID, SELFPAY ==
--- NOTE | 2023-01-28 12:11 | NM_ITS ---
APPROVED REPORT Exam: Nuclear Stress Test Indication: DYSRHYMIA, HTN, HYPERLIPIDEMIA, TOB USE, SOB, FATIGUE Patient Location: Outpatient Stress Tech: Carine Story [place] Tech:Pennie SarabiaTASNEEM RT (R)(N)(M) Ht: 5 ft 2 in Wt: 130 lbs Bra Size: A HR: 75 bpm BP: 161/87 mmHg BSA: 1.59 m2 TID: 1.19 BMI: 23.7 History: DYSRHYMIA, HTN, HYPERLIPIDEMIA, TOB USE, SOB, FATIGUE Procedure: Patient exercised on Andriy protocol 8:00 minutes and sec, resting heart rate 75 bpm, resting blood pressure 161/87 mmHg, with exercise maximum heart rate achived was 152 bpm which is 96 % of the maximum predicted heart rate and blood pressure was 174/78 mmHg. Test was stopped due to FATIGUE. Patient denied any complaint of chest pain. Patient has Average exercise capacity, achieved 10.1 METs of workload on treadmill, the blood pressure response to exercise was normal. Cardiac Stress and Resting SPECT Images: Cardiac Stress and Resting SPECT images were obtained using technetium 99m Myoview 31.4 mCi stress and 10.55 mCi at rest. Resting and stress imaging in both supine and prone positions demonstrate no fixed or reversible perfusion defects. Gated imaging demonstrates normal global LV systolic function. LVEF is calculated at 74%. Conclusion: No fixed or reversible perfusion defects. Gated imaging demonstrates normal global LV systolic function. LVEF is calculated at 74%. Electronically signed by : Flora Martin, 01/29/2023 20:31:05
--- NOTE | 2023-01-28 12:11 | CA_ITS ---
APPROVED REPORT Exam: Exercise Treadmill Technologist: Carine Story Ht: 5 ft 2 in Wt: 129 lbs BSA: 1.59 m2 HR: 57 bpm BP: 161/87 mmHg Rhythm: NSR Indications: Shortness of Air, chest pain, Abnormal ekg Medical History Medications: Lisinopril,,,,, Aspirin,,,,, Lovastatin,,,,, HCTZ,,,,, Flonase,,,,, ZYRTEC,,,,, ANASTROZOLE,,,,, Alendronate,,,,, Stress Test Details Test: Manual Treadmill HR Resting HR: 71 bpm Max Heart Rate (APMHR): 159 bpm Max HR Achieved: 152 bpm Target HR (85% APMHR): 135 bpm % of APMHR: 96 Recovery HR: 91 bpm HR response to stress: Normal HR response to stress BP Resting BP: 161.0/87.0 mmHg Max BP: 185.0/86.0 mmHg Recovery BP: 154.0/80.0 mmHg BP response to stress: Normal blood pressure response to stress. ECG Resting ECG: Normal sinus rhythm, old septal TN Stress EC mm horizontal ST depression Arrhythmia: PACs Recovery ECG: Return to baseline within 3 minutes of recovery Recovery Arrhythmia: None Clinical Exercise duration: 08:00 min Highest Stage Achieved: Exercise capacity: 10.1 METs Overall Exercise Capacity for Age: Average Stress ECG Conclusion Patient exercised 8:00 on Andriy Protocol. Test stopped due to shortness of air. The patient was able to exercise for total of 8 minutes, 0 seconds. She achieved a total of 10.1 METS. She has an average exercise capacity compared to age and sex matched peers. She has a normal HR and BP response to exercise. Symptoms: No chest pain. Arrhythmias/Ectopy: Occasional PAC. ST-T Changes: [address] depression Conclusion: Average exercise capacity. Possible ischemia is present on stress ECG. Myoview images reported separately. Test Summary REST . . . . . . . Sitting REST . . . . . . . Standing REST 03:23 0.0 0.0 71 . 161/ 87 . . Stage 1 01:00 10.0 1.7 102 . . . . Stage 1 02:00 10.0 1.7 110 . . . . Stage 1 03:00 10.0 1.7 115 . 166/ 70 . . Stage 2 01:00 12.0 2.5 124 . . . . Stage 2 02:00 12.0 2.5 133 . . . . Stage 2 . . . . . . . Shortness of Breath Stage 2 03:00 12.0 2.5 138 . 174/ 78 . . Stage 3 . . . . . . . Myoview Injected Stage 3 01:00 14.0 3.4 146 . . . . Stage 3 . . . . . . . Protocol changed to Manual Treadmill Stage 3 02:00 14.0 3.0 152 . . . Stop exercise at 08:00 RECOVERY 01:00 0.0 0.0 138 . . . . RECOVERY 02:00 0.0 0.0 113 . 185/ 86 . . RECOVERY 03:00 0.0 0.0 100 . 185/ 86 . . RECOVERY 04:00 0.0 0.0 98 . 162/ 80 . . RECOVERY 05:00 0.0 0.0 90 . 154/ 80 . . RECOVERY 05:19 0.0 0.0 86 . 154/ 80 . . Electronically signed by : Flora Martin, 01/29/2023 20:29:19
== END ==
PROVIDERS: PCP Emergency Medicine; Visit Provider Nurse Practitioner
DX: R06.02 Shortness of breath (principal); R94.31 Abnormal electrocardiogram [ECG] [EKG]; E78.5 Hyperlipidemia, unspecified; F17.200 Nicotine dependence, unspecified, uncomplicated
CPT/HCPCS: 78452; 93017; A9502

== ENCOUNTER → 2023-05-14 13:22 | Outpatient (CLI) | payer MEDICAID, SELFPAY ==
[2023-05-14 13:50] LABS: Basophils # 0.1 K/mm3 (0-0.2); Basophils % 0.6 % (0.1-2.0); Eosinophils # 0.1 K/mm3 (0.0-0.4); Eosinophils % 1.6 % (0.1-12.0); Hematocrit 42.6 % (37.0-47.0); Hemoglobin 14.6 g/dL (12.2-16.2); Lymphocytes # 2.1 K/mm3 (0.7-4.5); Lymphocytes % 25.9 % (10-50); Mean Corpuscular HGB Conc 34.3 g/dL (31.8-35.4); Mean Corpuscular Hemoglobin 33.1 pg (27.0-31.2); Mean Corpuscular Volume 96.5 fl (81-99); Mean Platelet Volume 7.9 fl (7.4-10.4); Monocytes # 0.3 K/mm3 (0.1-1.0); Monocytes % 3.8 % (1.7-9.3); Neutrophils # 5.5 K/mm3 (1.8-7.8); Platelet Count 280 K/mm3 (142-424); Red Blood Count 4.41 M/mm3 (4.20-5.40); Red Cell Distribution Width 12.8 % (11.5-17.5); White Blood Count 8.1 K/mm3 (4.8-10.8)
[2023-05-14 14:07] LABS: Alanine Aminotransferase 21 U/L (12-78); Albumin Level 4.8 g/dl (3.5-5.0); Albumin/Globulin Ratio 1.8 (1.1-1.8); Alkaline Phosphatase 61 U/L (38-126); Anion Gap 13.1 mEq/L (5-15); Aspartate Amino Transferase 42 U/L (14-36); Bilirubin,Total 0.5 mg/dl (0.2-1.3); Blood Urea Nitrogen 15 mg/dl (7-17); Calcium 10.4 mg/dl (8.4-10.2); Carbon Dioxide 28 mmol/L (22.0-30.0); Chloride 97 mmol/L (98-107); Estimated Glomerular Filt Rate 73 ml/min (>60); GFR (African American) 88 ML/MIN (>60); Globulin 2.7 g/dL (1.3-3.2); Glucose 98 mg/dl (74-100); Potassium 4.1 mmoL/L (3.5-5.1); Sodium 134 mmol/L (136-145); Total Protein,Serum 7.5 g/dl (6.3-8.2)
== END ==
PROVIDERS: PCP Emergency Medicine; Visit Provider Internal Medicine Medical Oncology
DX: D05.12 Intraductal carcinoma in situ of left breast (principal); Z17.0 Estrogen receptor positive status [ER+]
CPT/HCPCS: 80053; 85025

== ENCOUNTER → 2023-06-14 10:11 | Outpatient (CLI) | payer MEDICAID, SELFPAY ==
--- NOTE | 2023-06-14 10:16 | MM_ITS ---
PROCEDURE INFORMATION: Exam: MG Bilateral Screening 3D Mammography Exam date and time: 06/14/2023 10:10 AM Age: 62 years old Clinical indication: Screening. Personal history of left breast cancer, status post left lumpectomy. TECHNIQUE: Imaging protocol: Bilateral Screening tomosynthesis and 2D mammography including computer-aided detection (CAD) when performed. COMPARISON: 1. MG MM DIG SCREENING MAMM BI W/CAD 06/13/2022 3:47 PM 2. MG MM DIG MAMM BI DX W/CAD 06/30/2021 8:01 AM 3. MG MM SURGICAL SPECIMEN LT 08/24/2020 9:43 AM 4. MG MM NEEDLE LOC LT 08/24/2020 8:18 AM MG DMSB DIG MAMM-SCREEN CROW W/CAD 03/08/2017 9:18 AM MG DMSB DIG MAMM-SCREEN CROW 02/24/2016 8:33 AM MG DMSB DIG MAMM-SCREEN CROW 02/21/2015 8:30 AM MG DMSB DIG MAMM-SCREEN CROW 02/19/2014 4:03 PM FINDINGS: MAMMOGRAPHY: Breast composition: The breasts are extremely dense, which lowers the sensitivity of mammography. Mass: None. Architectural distortion: Stable left lumpectomy architectural distortion, asymmetry, deformity, a coarse calcification and surgical clips in the upper outer quadrant. Calcifications: No suspicious calcifications. Asymmetric density: No developing asymmetry., Skin thickening: None. Axillary adenopathy: None. IMPRESSION: No mammographic evidence of malignancy. Annual screening is recommended unless otherwise clinically indicated. ASSESSMENT: BI-RADS Category 2: Benign
== END ==
PROVIDERS: PCP Emergency Medicine; Visit Provider Internal Medicine Medical Oncology
DX: Z12.31 Encounter for screening mammogram for malignant neoplasm of breast (principal); C50.912 Malignant neoplasm of unspecified site of left female breast
CPT/HCPCS: 77063; 77067

== ENCOUNTER → 2023-06-20 08:59 | Outpatient (CLI) | payer MEDICAID, SELFPAY ==
[2023-06-20 18:11] LABS: Basophils # 0.1 K/mm3 (0-0.2); Basophils % 0.7 % (0.1-2.0); Eosinophils # 0.2 K/mm3 (0.0-0.4); Eosinophils % 1.9 % (0.1-12.0); Hematocrit 44.7 % (37.0-47.0); Lymphocytes # 1.8 K/mm3 (0.7-4.5); Lymphocytes % 21.6 % (10-50); Mean Corpuscular HGB Conc 33.5 g/dL (31.8-35.4); Mean Corpuscular Hemoglobin 32.7 pg (27.0-31.2); Mean Corpuscular Volume 97.6 fl (81-99); Mean Platelet Volume 9.8 fl (7.4-10.4); Monocytes # 0.4 K/mm3 (0.1-1.0); Monocytes % 4.3 % (1.7-9.3); Neutrophils % 71.5 % (37.0-80.0); Platelet Count 259 K/mm3 (142-424); Red Blood Count 4.58 M/mm3 (4.20-5.40); Red Cell Distribution Width 13.1 % (11.5-17.5); White Blood Count 8.3 K/mm3 (4.8-10.8)
[2023-06-20 20:17] LABS: Alanine Aminotransferase 23 U/L (12-78); Albumin Level 5.3 g/dl (3.5-5.0); Albumin/Globulin Ratio 1.7 (1.1-1.8); Alkaline Phosphatase 70 U/L (38-126); Anion Gap 13.1 mEq/L (5-15); Aspartate Amino Transferase 44 U/L (14-36); Bilirubin,Total 0.6 mg/dl (0.2-1.3); Blood Urea Nitrogen 20 mg/dl (7-17); Calcium 10.4 mg/dl (8.4-10.2); Carbon Dioxide 25 mmol/L (22.0-30.0); Chloride 98 mmol/L (98-107); Chol/HDL Ratio 3.2 (1-3.5); Cholesterol 200 mg/dl (140-200); Estimated Glomerular Filt Rate 64 ml/min (>60); GFR (African American) 77 ML/MIN (>60); Globulin 3.1 g/dL (1.3-3.2); Glucose 100 mg/dl (74-100); HDL Cholesterol 62 mg/dl (40-60); Potassium 4.1 mmoL/L (3.5-5.1); Sodium 132 mmol/L (136-145); Total Protein,Serum 8.4 g/dl (6.3-8.2); Triglycerides 139 mg/dl (30-150); VLDL Cholesterol 28 mg/dL (0-40)
[2023-06-20 20:28] LABS: Direct LDL Cholesterol 100.94 mg/dL (100-129)
[2023-06-20 20:29] LABS: 25-OH Vitamin D, Total 36.9 ng/mL (30-100)
[2023-06-20 20:47] LABS: Thyroid Stimulating Hormone 2.13 uIU/mL (0.465-4.68)
== END ==
PROVIDERS: PCP Nurse Practitioner Family; Visit Provider Nurse Practitioner Family
DX: E78.5 Hyperlipidemia, unspecified (principal); Z68.22 Body mass index [BMI] 22.0-22.9, adult
CPT/HCPCS: 80053; 80061; 82306; 84443; 85025

== ENCOUNTER 2023-12-04 10:27 | Outpatient (CLI) | payer MEDICAID, SELFPAY ==
[2023-12-04 11:33] LABS: Basophils # 0.1 K/mm3 (0-0.2); Basophils % 0.9 % (0.1-2.0); Eosinophils # 0.3 K/mm3 (0.0-0.4); Eosinophils % 2.7 % (0.1-12.0); Hematocrit 42.9 % (37.0-47.0); Lymphocytes # 1.8 K/mm3 (0.7-4.5); Lymphocytes % 19.1 % (10-50); Mean Corpuscular HGB Conc 32.6 g/dL (31.8-35.4); Mean Corpuscular Hemoglobin 32.1 pg (27.0-31.2); Mean Corpuscular Volume 98.6 fl (81-99); Mean Platelet Volume 7.6 fl (7.4-10.4); Monocytes # 0.4 K/mm3 (0.1-1.0); Neutrophils # 6.9 K/mm3 (1.8-7.8); Neutrophils % 73.4 % (37.0-80.0); Platelet Count 250 K/mm3 (142-424); Red Blood Count 4.35 M/mm3 (4.20-5.40); Red Cell Distribution Width 13.2 % (11.5-17.5); White Blood Count 9.4 K/mm3 (4.8-10.8)
[2023-12-04 12:14] LABS: Chloride 100 mmol/L (98-107); Potassium 4.5 mmoL/L (3.5-5.1); Sodium 131 mmol/L (136-145)
[2023-12-04 12:17] LABS: Alanine Aminotransferase 23 U/L (12-78); Albumin Level 4.8 g/dl (3.5-5.0); Albumin/Globulin Ratio 1.8 (1.1-1.8); Alkaline Phosphatase 75 U/L (38-126); Anion Gap 13.5 mEq/L (5-15); Aspartate Amino Transferase 46 U/L (14-36); Bilirubin,Total 0.6 mg/dl (0.2-1.3); Blood Urea Nitrogen 19 mg/dl (7-17); Calcium 10.6 mg/dl (8.4-10.2); Carbon Dioxide 22 mmol/L (22.0-30.0); Estimated Glomerular Filt Rate 73 ml/min (>60); GFR (African American) 88 ML/MIN (>60); Globulin 2.6 g/dL (1.3-3.2); Glucose 78 mg/dl (74-100); Total Protein,Serum 7.4 g/dl (6.3-8.2)
== END 2023-12-04 23:59 | disposition home or self-care (01) ==
LOC: LAB 10:28
PROVIDERS: PCP Internal Medicine; Visit Provider Internal Medicine Medical Oncology
DX: D05.12 Intraductal carcinoma in situ of left breast (principal); Z79.811 Long term (current) use of aromatase inhibitors; Z17.0 Estrogen receptor positive status [ER+]
CPT/HCPCS: 36415; 80053; 85025

== ENCOUNTER 2024-01-22 15:31 | Outpatient (CLI) | payer MEDICAID, SELFPAY ==
--- NOTE | 2024-01-22 15:35 | XR_ITS ---
FINAL REPORT CLINICAL HISTORY: hx breast cancer COMPARISON: 06/30/2021 FINDINGS: Using L1-4, the bone mineral density of the spine is 0.912 g/cm2, corresponding to T-score of -1.2 which is consistent with osteopenia. This previously was 0.967 with T-score of -0.7. Using the left hip, the bone mineral density of the femoral neck is 0.790 g/cm2, corresponding to a T-score of -1.2 which is consistent with osteopenia. This previously was 0.811 with T-score of -0.3. Using the right hip, the bone mineral density of the femoral neck is 0.626 g/cm2, corresponding to a T-score of -2.0 which is consistent with osteopenia. This previously was 0.678 with T-score of -1.5. FRAX not reported because the patient is being treated for osteoporosis NOTE: T-score: Standard deviation compared with peak bone mass of young adult mean. *Following the recommendations of the International Society of Bone densitometry, classification of hip BMD is based on the lower of two T-scores; total hip or femoral neck. IMPRESSION: Diminished bone mineral density consistent with osteopenia. Reviewed, Interpreted and Dictated by Yann Ward MD Transcribed by Sindy Jeong Authenticated and [facility]
== END 2024-01-22 23:59 | disposition home or self-care (01) ==
LOC: RAD 15:31
PROVIDERS: PCP Nurse Practitioner Family; Visit Provider Internal Medicine Medical Oncology
DX: M85.89 Other specified disorders of bone density and structure, multiple sites (principal); D05.12 Intraductal carcinoma in situ of left breast
CPT/HCPCS: 77080

== ENCOUNTER 2024-04-28 16:42 | Emergency (ER) | payer MEDICAID, SELFPAY ==
[2024-04-28 16:44] VITALS: BP 155/86; PULSE 85; RESP 13; TEMP 36.6; O2SAT 98; BMI 25.6
--- NOTE | 2024-04-28 16:46 | ED_ITS ---
<Statement entered by La Ray DO - 04/28/24 20:46> I was consulted by the CHARLES, and we discussed the complexity of the problems being addressed. I approved the treatment and management plan for this patient's care in the emergency department, thus performing a substantive portion of the medical decision making. La Ray DO Discharge Plan Disposition Patient Disposition: Home, Self-Care Condition: Good Prescriptions Prescriptions: New lidocaine 5 % adhesive patch,medicated 1 patch topical DAILY Qty: 30 0RF Rx Instructions: leave on most painful area for up to 12 hrs No Action lovastatin 20 mg tablet See Rx Instructions .ROUTE .COMPLEX Qty: 90 2RF Dose Instruction: TAKE 1 TABLET BY MOUTH DAILY. MAKE APPOINTMENT WITH PCP Rx Instructions: TAKE 1 TABLET BY MOUTH DAILY fluticasone propionate [Flonase Allergy Relief] 50 mcg/actuation spray,suspension 1 spray intranasal DAILY Qty: 16 2RF Rx Instructions: administer into each nostril aspirin 81 mg tablet,delayed release (DR/EC) 81 mg PO DAILY Qty: 90 0RF alendronate 70 mg tablet 70 mg PO WEEKLY Qty: 12 2RF Rx Instructions: TAKE 1 TABLET BY MOUTH EVERY WEEK cetirizine [Zyrtec] 10 mg tablet 10 mg PO DAILY Qty: 30 2RF anastrozole 1 mg tablet 1 mg PO DAILY Qty: 90 3RF Rx Instructions: take one tablet daily lisinopril-hydrochlorothiazide 20-12.5 mg tablet 1 tab PO DAILY Qty: 90 2RF Referrals Follow up/Referrals: Pedro Schultz APRN [Primary Care Provider] - See instructions Activity Restrictions/Add. Instructions Additional Instructions/Restrictions: You may take Tylenol alternating every 4 hours with Motrin along with a Lidoderm patch for your symptoms. Follow-up with your PCP for any lingering symptoms or any new symptoms or return to the ER as needed. Remember to take deep breaths and not splint. Clinical Impressions Clinical Impression: Multiple rib fractures Qualifiers: Encounter type: initial encounter Fracture type: closed Laterality: left Q ualified Code(s): S22.42XA - Multiple fractures of ribs, left side, initial encounter for closed fracture Instructions Patient Instructions: DI for Rib Fracture Print Language Print Language: German Discharge ED Provider: La Ray General Adult HPI General Chief complaint: PAIN Stated complaint: left side pain fell last week Time Seen by Provider: 10/29/24 16:46 History of Present Illness HPI narrative: Patient presents for evaluation of left sided thoracoabdominal pain. Patient states approximate 7 days ago she accidentally fell in her house landing on her rear end however the arm of a wooden chair hit her in the left back. She said it hurt but she has been able to tolerate it until today. Today she woke up and she has been having a significant increase in her pain on the left chest wall. She points to the lower anterior lateral costal margin. She denies any shortness of breath fever chills hemoptysis hematochezia melena nausea vomit diarrhea. Related Data Previous Rx's ?Medication ?Instructions ?Recorded alendronate 70 mg tablet 70 mg PO WEEKLY Osteoporosis #12 03/26/23 tabs aspirin 81 mg tablet,delayed 81 mg PO DAILY Blood thinner #90 03/26/23 release tabs fluticasone propionate 50 1 spray intranasal DAILY #16 grams 03/26/23 mcg/actuation nasal spray,suspension (Flonase Allergy Relief) cetirizine 10 mg tablet (Zyrtec) 10 mg PO DAILY #30 tabs 06/17/23 lovastatin 20 mg tablet See Rx Instructions .Route 06/27/23 .COMPLEX #90 tabs anastrozole 1 mg tablet 1 mg PO DAILY breast cancer #90 02/27/24 tabs lisinopril 20 1 tab PO DAILY #90 tabs 03/26/24 mg-hydrochlorothiazide 12.5 mg tablet lidocaine 5 % topical patch 1 patch topical DAILY #30 ea 04/28/24 Allergies Allergy/AdvReac Type Severity Reaction Status Date / Time No Known Allergies Allergy Verified 12/05/23 10:16 [facility] Disclaimer: The information contained in this section may have been updated after the patient was seen, as this information can be updated by other users. Medical History History of basal cell cancer Vitamin D deficiency Tobacco dependence Hyperlipidemia Surgical History History of lumpectomy of left breast Social History Smoking Status: Current every day smoker tobacco type: cigarettes packs per day: 1 second hand exposure: No alcohol intake: never substance use type: denies use current occupational status: employed Travel in the last 8 weeks: None household members: significant other and family housing: house current occupational exposures/hazards: No caffeine: Yes Other Medical History Have you received the Flu Vaccine for this season: Yes Have you received the Pneumonia Vaccine: Yes ROS Obtained: Yes Systems reviewed as appropriate & no additional complaints except as documented Physical Exam General General appearance: alert and in no apparent distress Respiratory Respiratory exam: Present normal lung sounds bilaterally Cardiovascular Cardiovascular exam: Present regular rate Neurological Exam Neurological exam: Present alert and oriented X3 Medical Decision Making Medical Records Medical records reviewed: Yes I reviewed the patient's medical records. Screening: Per USPSTF and CDC recommendations, given the prevalence of disease in our region, it is our hospital?s policy to screen for HIV and viral Hepatitis for all patients aged 18 and over and those with ongoing risk factors. Grabiel Inquiry Pt receiving controlled substance: No Vital Signs: 04/28/24 16:44 04/28/24 17:00 04/28/24 17:30 Temperature 97.9 F Temperature Source Oral Pulse Rate 84 74 Pulse Rate [Left Radial] 85 Respiratory Rate 13 Blood Pressure 144/86 H 135/76 Blood Pressure [Right Arm] 155/86 H Blood Pressure Mean 101 Blood Pressure Mean [Right Arm] 109 02 Sat by Pulse Oximetry 98 98 97 Oxygen Delivery Method Room Air Room Air Room Air 04/28/24 18:00 Temperature Temperature Source Pulse Rate 74 Pulse Rate [Left Radial] Respiratory Rate Blood Pressure 153/76 H Blood Pressure [Right Arm] Blood Pressure Mean 101 Blood Pressure Mean [Right Arm] 02 Sat by Pulse Oximetry 98 Oxygen Delivery Method Room Air Lab Data Lab results reviewed: Yes I reviewed the patient's lab results. Lab Results 04/28/24 17:00: WBC 9.4, RBC 3.93 L, Hgb 12.9, Hct 37.0, MCV 94.2, MCH 32.8 H, MCHC 34.8, RDW 12.8, Plt Count 267, MPV 7.2 L, Neut % (Auto) 71.3, Lymph % (Auto) 18.8, [place] % (Auto) 4.6, Eos % (Auto) 4.5, Baso % (Auto) 0.8, Neut # (Auto) 6.7, Lymph # (Auto) 1.8, [place] # (Auto) 0.4, Eos # (Auto) 0.4, Baso # (Auto) 0.1, Sodium 132 L, Potassium 3.8, Chloride 95 L, Carbon Dioxide 27, Anion Gap 13.8, BUN 19 H, Creatinine 1.00, Estimated Creat Clear 58, Estimated GFR 56 L, Est GFR ( Amer) 68, Glucose 110 H, Calcium 9.4, HIV 1&2 Antibody Rapid Nonreactive 04/28/24 17:00 04/28/24 17:00 Orders (Tests/Meds): ED MEDICATIONS Discontinued Medications Generic Name Dose Route Start Last Admin Trade Name Freq PRN Reason Stop Dose Admin Acetaminophen 1,000 mg 04/28/24 16:54 04/28/24 17:04 Acetaminophen 500mg Tab PO 04/28/24 16:55 1,000 mg ONCE ONE Administration Dexamethasone Sodium Phosphate 10 mg 04/28/24 16:54 04/28/24 17:04 Dexamethasone 4mg/Ml 5ml Mdv IV 04/28/24 16:55 10 mg ONCE ONE Administration Iopamidol 70 ml 04/28/24 17:51 04/28/24 17:52 Iopamidol-370 (76%);100ml Bottle IV 04/28/24 17:52 70 ml ONCE ONE Administration Lidocaine 1 each 04/28/24 16:54 04/28/24 17:04 Lidocaine 5% Transdermal Patch TP 04/28/24 16:55 1 each ONCE ONE Administration Methocarbamol 500 mg 04/28/24 16:54 04/28/24 17:04 Methocarbamol 500mg Tablet PO 04/28/24 16:55 500 mg ONCE ONE Administration Sodium Chloride 10 ml 04/28/24 17:51 04/28/24 17:52 Sodium Chloride 0.9% 10ml Syr (Rad Only) IV 04/28/24 17:52 10 ml ONCE ONE Administration Sodium Chloride 50 ml 04/28/24 17:51 04/28/24 17:52 0.9 % Sodium Chloride 50 Ml Vial IV 04/28/24 17:52 50 ml ONCE ONE Administration ORDERS Category Date Time Status CT abdomen pelvis w con Stat Cat Scan 04/28/24 16:[address] angio chest PE protocol Stat Cat Scan 04/28/24 16:55 Completed BMP [Basic Metabolic Panel] Stat Lab 04/28/24 17:00 Completed CBC w/Auto Diff [Complete Blood Count Auto Diff] Stat Lab 04/28/24 17:00 Completed HIV (1&2) Antibody Rapid Stat Lab 04/28/24 17:00 Completed Hep C Ab with Reflex to RNA Stat Lab 04/28/24 17:00 Received Medical Decision Narrative: In summary patient is a 63-year-old female who presents to the emergency department for evaluation of left-sided thoracicoabdominal pain. Patient is hemodynamically stable upon arrival, afebrile. Physical exam is remarkable for tenderness to palpation in the anterior lateral lower costal margin however the tenderness extends along the rib cage to the dorsal spine but not including the dorsal spine. There is no evidence of ecchymosis abrasions or contusions. There is no palpable bony deformity. Back sounds are equal bilaterally to the bases without adventitious sounds. Abdomen is soft and slightly tender in the most proximal left upper quadrant without rebound or guarding or rigidity.. Differential diagnosis includes rib fracture versus splenic injury versus lung contusion versus hemothorax versus pneumothorax versus PE etc. Initial workup will be conducted with CT scan chest abdomen pelvis hematologic labs.. Initial interventions include Tylenol and Lidoderm patch. Initial workup reviewed by me and my formal interpretation of her CT scans shows posterior 10th and 11th rib fractures with remainder of her imaging with no acute processes. Hematologic labs are nonactionable. Upon repeat evaluation patient reported improvement of her discomfort after initial intervention. Given this patient is appropriate for discharge with a prescription for Lidoderm patch, incentive spirometry and strict return precautions. Critical Care Critical Care Time Critical Care Time: No
--- NOTE | 2024-04-28 16:54 | CT_ITS ---
PROCEDURE INFORMATION: Exam: CT Abdomen And Pelvis With Contrast Exam date and time: 04/28/2024 5:54 PM Age: 63 years old Clinical indication: Injury or trauma; Fall; Blunt; Llq; Additional info: Fall, left upper quadrant pain TECHNIQUE: Imaging protocol: Computed tomography of the abdomen and pelvis with contrast. 3D rendering (Not supervised by radiologist): MIP and/or 3D reconstructed images were created by the technologist. Radiation optimization: All CT scans at this facility use at least one of these dose optimization techniques: automated exposure control; mA and/or kV adjustment per patient size (includes targeted exams where dose is matched to clinical indication); or iterative reconstruction. Contrast material: ISOVUE; Contrast volume: 70 ml; Contrast route: IV; COMPARISON: CT ABDOMEN PELVIS WO/W CON 06/15/2022 8:59 AM FINDINGS: Liver: Normal. No mass. Gallbladder and biliary ducts: Normal. No calcified stones. No ductal dilation. Pancreas: Normal. No ductal dilation. Spleen: Normal. No splenomegaly. Adrenal glands: Normal. No mass. Kidneys and ureters: Normal. No hydronephrosis. Stomach and bowel: Unremarkable. No obstruction. No mucosal thickening. Appendix: No evidence of appendicitis. Intraperitoneal space: Unremarkable. No free air. No significant fluid collection. Vasculature: Unremarkable. No abdominal aortic aneurysm. Lymph nodes: Unremarkable. No enlarged lymph nodes. Urinary bladder: Unremarkable as visualized. Reproductive: Hysterectomy Bones/joints: Unremarkable. No acute fracture. Soft tissues: Unremarkable. IMPRESSION: No acute findings.
--- NOTE | 2024-04-28 16:55 | CT_ITS ---
PROCEDURE INFORMATION: Exam: CTA Chest With Contrast Exam date and time: 04/28/2024 5:54 PM Age: 63 years old Clinical indication: Injury or trauma; Fall; Blunt trauma (contusions or hematomas); Additional info: Left-sided thoracoabdominal pain TECHNIQUE: Imaging protocol: Computed tomographic angiography of the chest with contrast. Exam focused on the arteries. 3D rendering (Not supervised by radiologist): MIP and/or 3D reconstructed images were created by the technologist. Radiation optimization: All CT scans at this facility use at least one of these dose optimization techniques: automated exposure control; mA and/or kV adjustment per patient size (includes targeted exams where dose is matched to clinical indication); or iterative reconstruction. Contrast material: ISOVUE 370; Contrast volume: 70 ml; Contrast route: INTRAVENOUS (IV); COMPARISON: CT CHEST W CON 09/19/2020 11:17 AM FINDINGS: Pulmonary arteries: Normal. No pulmonary emboli. Aorta: Unremarkable. No aortic aneurysm. No aortic dissection. Lungs: Unremarkable. No consolidation. No masses. Pleural spaces: Unremarkable. No pneumothorax. No pleural effusion. Heart: Unremarkable. No cardiomegaly. No pericardial effusion. Lymph nodes: Unremarkable. No enlarged lymph nodes. Bones/joints: Acute nondisplaced fractures of the left posterior 9th, 8th, 7th ribs. Soft tissues: Unremarkable. IMPRESSION: No acute findings. Acute nondisplaced fractures of the left posterior 9th, 8th, 7th ribs.
[2024-04-28 17:00] VITALS: BP 144/86; PULSE 84; O2SAT 98
[2024-04-28] MEDS: LIDOCAINE 5% TRANSDERMAL PATCH 1 EACH TP (17:04)
[2024-04-28] MEDS: DEXAMETHASONE 4MG/ML 5ML MDV 10 MG IV (17:04)
[2024-04-28] MEDS: METHOCARBAMOL 500MG TABLET 500 MG PO (17:04)
[2024-04-28] MEDS: ACETAMINOPHEN 500MG TAB 1000 MG PO (17:04)
[2024-04-28 17:19] LABS: Basophils # 0.1 K/mm3 (0-0.2); Basophils % 0.8 % (0.1-2.0); Eosinophils # 0.4 K/mm3 (0.0-0.4); Eosinophils % 4.5 % (0.1-12.0); Hemoglobin 12.9 g/dL (12.2-16.2); Lymphocytes # 1.8 K/mm3 (0.7-4.5); Lymphocytes % 18.8 % (10-50); Mean Corpuscular HGB Conc 34.8 g/dL (31.8-35.4); Mean Corpuscular Hemoglobin 32.8 pg (27.0-31.2); Mean Corpuscular Volume 94.2 fl (81-99); Mean Platelet Volume 7.2 fl (7.4-10.4); Monocytes # 0.4 K/mm3 (0.1-1.0); Monocytes % 4.6 % (1.7-9.3); Neutrophils # 6.7 K/mm3 (1.8-7.8); Neutrophils % 71.3 % (37.0-80.0); Platelet Count 267 K/mm3 (142-424); Red Blood Count 3.93 M/mm3 (4.20-5.40); Red Cell Distribution Width 12.8 % (11.5-17.5); White Blood Count 9.4 K/mm3 (4.8-10.8)
[2024-04-28 17:24] LABS: Anion Gap 13.8 mEq/L (5-15); Blood Urea Nitrogen 19 mg/dl (7-17); Calcium 9.4 mg/dl (8.4-10.2); Carbon Dioxide 27 mmol/L (22.0-30.0); Chloride 95 mmol/L (98-107); Creatinine Clearance Estimated 58 mL/min (50-200); Estimated Glomerular Filt Rate 56 ml/min (>60); GFR (African American) 68 ML/MIN (>60); Glucose 110 mg/dl (74-100); Potassium 3.8 mmoL/L (3.5-5.1); Sodium 132 mmol/L (136-145)
[2024-04-28 17:30] VITALS: BP 135/76; PULSE 74; O2SAT 97
--- NOTE | 2024-04-28 17:45 | PC.NURSE ---
Patient is out of the room, Patient is gone to CT.
[2024-04-28] MEDS: IOPAMIDOL-370 (76%);100ML BOTTLE 70 ML IV (17:52)
[2024-04-28] MEDS: SODIUM CHLORIDE 0.9% 10ML SYR (RAD ONLY) 10 ML IV (17:52)
[2024-04-28] MEDS: 0.9 % SODIUM CHLORIDE 50 ML VIAL IV (17:52)
--- NOTE | 2024-04-28 17:57 | PC.NURSE ---
Pt returned to room from RAD
[2024-04-28 18:00] VITALS: BP 153/76; PULSE 74; O2SAT 98
[2024-04-28 18:36] LABS: HIV (1&2) Antibody Rapid NONREACTIVE (NONREACTIVE)
[2024-04-28 18:38] VITALS: BP 158/79; PULSE 77; O2SAT 99
[2024-04-28 18:40] VITALS: BP 158/79; PULSE 77; RESP 13; TEMP 36.7
[2024-04-30 06:14] LABS: HCV Ab Non Reactive (Non Reactive)
== END 2024-04-28 18:41 | disposition home or self-care (01) ==
PROVIDERS: Physician Assistant; Emergency Provider Emergency Medicine; PCP Nurse Practitioner Family
DX: S22.42XA Multiple fractures of ribs, left side, initial encounter for closed fracture (principal); R07.82 Intercostal pain; R07.89 Other chest pain; R10.32 Left lower quadrant pain; M54.9 Dorsalgia, unspecified; W01.190A Fall on same level from slipping, tripping and stumbling with subsequent striking against furniture, initial encounter; Y93.89 Activity, other specified; Y92.009 Unspecified place in unspecified non-institutional (private) residence as the place of occurrence of the external cause
CPT/HCPCS: 71275; 74177; 80048; 85025; 86803; 87389; 96374; 99285; J1100; Q9967

== ENCOUNTER 2024-06-30 16:43 | Outpatient (CLI) | payer MEDICAID, SELFPAY ==
--- NOTE | 2024-06-30 16:45 | MM_ITS ---
PROCEDURE INFORMATION: Exam: MG Bilateral Screening 3D Mammography Exam date and time: 06/30/2024 4:29 PM Age: 63 years old Clinical indication: Screening. Personal history of left breast cancer, status post lumpectomy in 2020. TECHNIQUE: Imaging protocol: Bilateral Screening tomosynthesis and 2D mammography including computer-aided detection (CAD) when performed. COMPARISON: 1. MG MM DIG SCREENING MAMM BI W/CAD 06/14/2023 10:10 AM 2. MG MM DIG SCREENING MAMM BI W/CAD 06/13/2022 3:47 PM 3. MG MM DIG MAMM BI DX W/CAD 06/30/2021 8:01 AM 4. MG MM SURGICAL SPECIMEN LT 08/24/2020 9:43 AM FINDINGS: MAMMOGRAPHY: Breast composition: The breasts are extremely dense, which lowers the sensitivity of mammography. Mass: None. Architectural distortion: Staple left lumpectomy architectural distortion, asymmetry, deformity and surgical clips. Calcifications: Question new calcifications at the lumpectomy site, best seen in the MLO projection. Asymmetric density: None. Skin thickening: None. Axillary adenopathy: None. IMPRESSION: Patient will be recalled for left diagnostic mammography with magnification views in CC and true lateral for further evaluation of questionable calcifications at the lumpectomy site. ASSESSMENT: BI-RADS Category 0: Incomplete: Need Additional Imaging Evaluation.
== END 2024-06-30 23:59 | disposition home or self-care (01) ==
LOC: RAD 16:45
PROVIDERS: PCP Nurse Practitioner Family; Visit Provider Internal Medicine Medical Oncology
DX: N64.89 Other specified disorders of breast (principal); Z12.31 Encounter for screening mammogram for malignant neoplasm of breast
CPT/HCPCS: 77063; 77067

== ENCOUNTER 2025-01-15 10:15 | Outpatient (CLI) | payer MEDICAID, SELFPAY ==
--- OUTSIDE RECORDS SUMMARY | 2025-01-15 10:19 | XMS_ITS | Clinical Summary ---
Author Organization [facility] Address [address] [place] [address] Care Team Providers Care Abalone Diver Name Role Phone South Lara MD Primary Care Provider [phone] Social History Tobacco Use Types Packs/Day Years Used Date Smoking Tobacco: Never Assessed Abuse Screen Answer Date Recorded Unsafe at Home or Work/School Not on file Feels Threatened by Someone? Not on file 05/2023 Does Anyone Keep You from Co ntacting Others or Doint Things Outside the Home? Not on file 04/11/2023 Physical Sign of Abuse Present Not on file 1 Housing Stability Answer Date Recorded Current Living Arrangements Not on file 03/31 Potentially Unsafe Housing Conditions Not on christopher e 04/11/2023 Family and Community Support Answer Alfred e Recorded Help with Day-to-Day Activities Not on file 04/11/2023 Lonely or Isolated Not on file 04/11/2023 Employment Answer Date Recorded Do you want help finding or keeping work or a jayleen b? Not on file 04/11/2023 Disabilities Answer Date Recorded Concentrating, Remembering, or Making Decisions Difficulty Not on file 04/11/2023 Doing Errands Independently Difficulty Not on fi le 04/11/2023 Education Answer Date Recorded Help with school or training? Not on file Preferred Language Not on file 04/11/2023 Comments No Sex and Gender Information Value Date Recorded Sex Assigned at Not on file Legal Sex Female 10:42 AM EST Gender Identity Not on file Sexual Orientation Not on file Plan of Treatment Health Maintenance Due Date Last Done Comments ANNUAL PHYSICAL 1961 Annual Gynecologic Pelvic and Breast Exam 1961 HEPATITIS C SCREENING 1961 TDAP/TD VACCINES (1 - Tdap) 1980 MAMMOGRAM 2001 COLOGUARD 2006 COLON CANCER SCREENING 5 YEA R SIGMOIDOSCOPY 2006 COLONOSCOPY [address]CER SCREENING [address] COLONOGRAPHY 2006 FECAL OCCULT BLOOD TEST 2006 FIT Testing (1 year) 2006 Pneumococcal Vaccine 50+ (1 of 1 - PCV) 11/18/2011 ZOSTER VACCINE (1 of 2) 11/18/2011 COVID-19 Vaccine (1 - 2023- season) 2024 INFLUENZA VACCINE 03/31/2025 04/19/2018, 03/29/2016 Insurance [employer] MEDICAID [place] Care Teams Abalone Diver Relationship Specialty Start Date End Date South Lara MD PCP - General Emergency Medicine 07/06/20
--- OUTSIDE RECORDS SUMMARY | 2025-01-15 10:19 | XMS_ITS | Data Portability ---
Author Organization [facility] Address [address] [place] [id number] Care Team Providers Care Internal Security Manager Name Role Phone GLORIA MILLER Referring Provider FERMIN RODRIGUEZ Primary Care Provider Assessment Encounter Date Assessment Date Assessment LastModified by Organization Details LastModified Time 07/11/2022 07/11/2022 61 year-old female with recently identified AST (113) and total bilirubin (1/4) on labs from 05/22/22. US liver on 06/06/[address] un[address] liver. CT abd/pelvis with contrast on 11/03/20 showed hepatic steatosis. She drinks approximately 10 glasses of wine per week. -Suspect abnormal hepatic function is related to alcohol use. I have recommended she refrain from drinking and we will repeat her labs in the next few months. I have also counseled diet and exercise for weight loss. If LFTs remain elevated despite her efforts, will plan to investigate further. Not available 07/11/2022 15:21:25 Plan of Treatment Reminders Order Date Submit Date Provider Last Modified By Organization Details Last Modified Time Details Appointments None record ed. Lab None record ed. Referral None record ed. Procedures None record ed. Surgeries None record ed. Imaging None record ed. Medication Orders None record ed. Patient TargetsNo targets recorded. Patient InstructionsNo instructions recorded. Reason for Referral None Reported. Problems Name Problem SNOMED Code Status Onset Date Resolution Date Notes Provider Name and Address Organization Details Recorded Time Liver enzymes level above reference range 186863631 Active 023 Lenny Aponte PA-C [address], [place], [address] , [facility] & [place] 3 15:18:43 Steatotic liver disease 707266293 Active 023 Lenny Aponte PA-C [address] [facility], [place], [address] , [place] - [facility] [place] & [place] 3 15:21:29 Problem Notes None recorded. Medical Equipment None Reported. Allergies No known drug allergies Medications Name Sig Start Date Stop Date Status Note LastModified by Organization Details LastModified Time fin nut vit d3 1000iu sf gel caps TAKE 1 CAPSULE BY MOUTH DAILY active Not Available Not Available No t Available anastrozole 1 mg tablet TAKE 1 TABLET BY MOUTH EVERY DAY active Not Available Not Available No t Available azithromyci n 250 mg tablet 07/11 completed Not Available Not Available Not Available prednisone 20 mg tablet TAKE 1 TABLET BY MOUTH TWICE DAILY WITH FOOD FOR 5 DAYS 07/11 completed Not Available Not Available Not Available alendronate 70 mg tablet TAKE 1 TABLET BY MOUTH EVERY WEEK ON SAME DAY EACH WEEK active Not Available Not Available No t Available aspirin 81 mg tablet,emil yed release TAKE 1 TABLET BY MOUTH DAILY A BLOOD THINNER active Not Available Not Available No t Available benzonatate 100 mg capsule TAKE 1 CAPSULE BY MOUTH THREE TIMES DAILY NEEDED FOR COUGH. SWALLOW WHOLE DO NOT CHEW 07/11 completed Not Available Not Available Not Available lisinopril 10 mg tablet TAKE 1 TABLET BY MOUTH DAILY FOR BLOOD PRESSURE active Not Available Not Available No t Available ergocalcife rol (vitamin D2) 1,250 mcg (50,000 unit) capsule TAKE 1 CAPSULE BY MOUTH WEEKLY ON SAME DAY EACH WEEK active Not Available Not Available No t Available lovastatin 20 mg tablet TAKE 1 TABLET BY MOUTH DAILY active Not Available Not Available No t Available cholecalcif aidee (vitamin D3) 25 mcg (1,000 unit) capsule TAKE 1 CAPSULE BY MOUTH DAILY 07/11 completed Not Available Not Available Not Available fenofibrate 50 mg capsule TAKE 1 CAPSULE BY MOUTH DAILY active Not Available Not Available No t Available BinaxNOW COVID-19 Ag Self Test kit TEST DIRECTED TODAY 07/11 completed Not Available Not Available Not Available Vitals Date Recorded Body weight Heart rate Systolic And Diastolic Provider Name and Address Organization Details Last Updated DateTime 07/11/2022 60960.93 g 114 /min 124/85 mm[Hg] Nataly Charles [place] - [facility] - [place] & [place] 07/11/2022 14:52:52 Social History None recorded. Functional Status None recorded. Mental Status None recorded. Family History Nothing Reported. Medical History No medical history recorded. Gynecological HistoryNo gynecological history recorded. Obstetrics History GPAL:G 0 P 0 0 0 0 Past Encounters Encounter ID Performer Location Encounter Start Date Encounter Closed Date Diagnosis/Indication Diagnosis SNOMED-CT Code Diagnosis ICD10 Code Diagnosis Note [id number] Lenny Aponte PA-C [facility] [facility] [address] [place] [address] 07/11/2022 14:36:06 07/11/2022 15:21:39 Liver enzymes level above reference range 348748321 R74.01 Steatotic liver disease 922953564 K76.0 Daily drinker 328213259 Z72.89 approx 2 glasses of wine in the evenings Health Concerns Section Related Observation LastModified by Organization Detai ls LastModified Time None Recorded Concern Status LastModified by Organization Details LastModified Time None Recorded Advance Directives Directive None Recorded Payers Insurance Date Sequence Insurance Name Policy Number Policy Self Covered Member ID Self Member ID Guarantor Name 07/11/2022 1 BELKIS Diaz [id number] Lynda Diaz Notes Date Note Type Note Provider Name and Address Organization Details Recorded Time 07/11/2022 text/html Very pleasant 61-year-old female who was referred by Dr. Gloria Miller for evaluation of elevated liver enzymes. Labs from May 22, 2022 showed a total bilirubin elevated at 1.4, AST elevated at 113, alk-phos elevated at 154, with normal ALT and normal albumin. CMP otherwise unremarkable. US liver performed in early May was unremarkable. She did have a CT abdomen and pelvis with contrast performed last summer that showed hepatic steatosis. She denies a family history of cirrhosis or liver disease otherwise. She reports drinking 2 glasses of wine in the evenings. She does not feel that she exceeds more than 10 glasses of wine per week. She reports frequent fatigue, but is otherwise without complaint at this time. Lenny Aponte PA-C [address] [facility], [place], [address], [facility] & [place] 07/11/2022 15:25:48 OBGyn Episode No OBEpisode recorded.
--- OUTSIDE RECORDS SUMMARY | 2025-01-15 10:19 | XMS_ITS | Clinical Summary ---
Author Organization Healthcare Address [address] [place] [address] Care Team Providers Care Claim Inspector Name Role Phone Unavailable Primary Care Provider Unavailabl e Social History Tobacco Use Types Packs/Day Years Used Date Smoking Tobacco: Never Assessed Comments Unknown Sex and Gender Information Value Date Recorded Sex Assigned at Not on file Legal Sex Female 7:58 PM EDT Gender Identity Not on file Sexual Orientation Not on file Last Filed Vital Signs Vital Sign Reading Time Taken Comments Blood Pressure 168/86 01/04/2023 4:23 PM EDT Pulse 82 01/04/2023 4:23 PM EDT Temperature - - Respiratory Rate - - Oxygen Saturation - - Inhaled Oxygen Concentration - - Weight 60.3 kg (133 lb) 01/04/2023 4:23 PM EDT Height 157.5 cm (5' 2 ) 01/04/2023 4:23 PM EDT Body Mass Index 24.33 01/04/2023 4:23 PM EDT Plan of Treatment Health Maintenance Due Date Last Done Comments [facility]-Depression Screening 1961 [facility]-/Child/Adol SDOH Screenings 1961 [facility]- SDOH Screenings 11/18/1979 [facility]-Adult SDOH Screenings 11/18/1979 [facility]-DTaP,Tdap,and Td Vaccines (1 - Tdap) 1980 [facility]-Pap Smear 1982 [facility]-Cervical Cancer Screening 11/18/1991 [facility]-HPV/Cotest 11/18/1991 CT Colonography 2006 Colonoscopy 2006 FIT-DNA 2006 FIT 2006 FOBT 2006 Sigmoidoscopy 2006 [facility]-Colorectal Cancer Screening 2006 [facility]-Pneumococcal Vaccine: 50+ Years (1 of 1 - PCV) 11/18/2011 [facility]-Zoster Vaccines (1 of 2) 11/18/2011 [id number] Vaccine (2023- season) 2024 02/01/2022, 03/09/2021, 02/12/2021 [facility]-Influenza Vaccine (#1) 03/01/202503/07, 04/20/2021, 04/12/2020, Additional history exists [facility]-RSV Vaccine: 60+ Years or (1 - 1-dose 75+ series) 2036 HPV Vaccines Aged Out No longer eligi ble based on patient's age to complete this topic [facility]-HIB Vaccines Aged Out No longer e ligible based on patient's age to complete this topic [facility]-Hepatitis A Vaccines Aged Out No longer eligible based on patient's age to complete this topic [facility]-IPV Vaccines Aged Out No longer e ligible based on patient's age to complete this topic [facility]-Rotavirus Vaccines Aged Out No lo nger eligible based on patient's age to complete this topic Insurance [employer] [facility] MEDICAID
--- NOTE | 2025-01-15 10:30 | NM_ITS ---
FINAL REPORT CLINICAL HISTORY: H/O LT BREAST CANCER 4 YEARS AGO, annual scan FINDINGS: EXISTING RELEVANT IMAGING STUDIES: Rib radiographs 01/15/2025 TECHNIQUE: The patient was injected with 5.6 mCi of technetium 99-MDP. 3 hour delayed images were obtained. FINDINGS: Abnormal uptake in multiple posterior left ribs corresponding to healing rib fractures as seen on rib radiographs. Abnormal uptake in the anterior left 6th rib also corresponds to healing fracture. The remaining skeletal structures demonstrate normal uptake aside from degenerative related activity. IMPRESSION: No evidence of metastatic bone disease. Reviewed, Interpreted and Dictated by Yann Ward MD Transcribed by Sindy Jeong Authenticated and [facility]
[2025-01-15] MEDS: SODIUM CHLORIDE 0.9% 10ML SYR (RAD ONLY) 10 ML IV (11:13)
[2025-01-15] MEDS: ISOTOPE CHOLETECH;1 DOSE (UP TO 15 MCI) IV (11:13)
--- NOTE | 2025-01-15 14:25 | XR_ITS ---
FINAL REPORT CLINICAL HISTORY: FALL IN 2023 WITH FX OF LT RIBS ALSO LT BREAST CANCER 2020 COMPARISON: None FINDINGS: 3 views of the left ribs show no destructive bony lesions. There is deformity of the anterior left 6th rib compatible with a healing fracture. There are healing fractures of the proximal left 4th through 9th ribs. There is no pneumothorax or pleural fluid collection. Frontal chest radiograph is unremarkable. IMPRESSION: Multiple healing rib fractures as seen on bone scan. Reviewed, Interpreted and Dictated by Yann Ward MD Transcribed by Sindy Jeong Authenticated and . [facility]
== END 2025-01-15 23:59 | disposition home or self-care (01) ==
LOC: RAD 10:15
PROVIDERS: PCP Nurse Practitioner Family; Visit Provider Internal Medicine Medical Oncology
DX: C34.90 Malignant neoplasm of unspecified part of unspecified bronchus or lung (principal); S22.42XD Multiple fractures of ribs, left side, subsequent encounter for fracture with routine healing; Z85.828 Personal history of other malignant neoplasm of skin; Z91.81 History of falling
CPT/HCPCS: 71101; 78306; A9537

== ENCOUNTER 2025-01-25 13:42 | Outpatient (CLI) | payer MEDICAID, SELFPAY ==
--- NOTE | 2025-01-25 13:45 | XR_ITS ---
FINAL REPORT TECHNIQUE: Bone densitometry calculations of the lumbar spine and bilateral hips were obtained. CLINICAL HISTORY: DCIS COMPARISON: 01/22/2024 FINDINGS: Using L1-4, the bone mineral density of the spine is 0.942 g/cm2, corresponding to T-score of -1.0 and a Z score of 0.7. This is within the range of osteopenia. Using the left hip, the bone mineral density of the femoral neck is 0.706 g/cm2, corresponding to a T-score of -1.3 and a Z-score of 0.1. This is within the range of osteopenia. Using the right hip, the bone mineral density of the femoral neck is 0.648 g/cm?, corresponding to a T-score of -1.8 and a Z-score of -0.4. This is within the range of osteopenia. NOTE: T-score: Standard deviation compared with peak bone mass of young adult mean. *Following the recommendations of the International Society of Bone densitometry, classification of hip BMD is based on the lower of two T-scores; total hip or femoral neck. IMPRESSION: 1. Bone mineral density of the lumbar spine within the range of osteopenia. 2. Bone mineral density of the bilateral femoral necks within the range of osteopenia. Reviewed, Interpreted and Dictated by Dorothy Carvalho MD Transcribed by Tracy Aponte Authenticated and [facility]
--- OUTSIDE RECORDS SUMMARY | 2025-01-25 13:46 | XMS_ITS | Data Portability ---
Author Organization [facility] Address [address] [place] [id number] Care Team Providers Care Brake Linings Coater Name Role Phone GLORIA MILLER Referring Provider [...] Time Liver enzymes level above reference range [id number] Active 023 Lenny Aponte PA-C [address], [place], [address] , [facility] & [place] 3 15:18:43 Steatotic liver disease [id number] Active 023 Lenny Aponte PA-C [address] [facility], [place], [address] , [place] - [facility] - [place] & [place] 3 15:21:29 Problem Notes None recorded. Medical [...] Address Organization Details Last Updated DateTime 07/11/2022 26172.93 g 114 /min 124/85 mm[Hg] Nataly Charles [place] [facility] - [place] & [place] 07/11/2022 14:52:52 Social History None recorded. Functional Status None recorded. Mental Status None recorded. Family History Nothing Reported. Medical History No medical history recorded. Gynecological HistoryNo gynecological history recorded. Obstetrics History GPAL:G 0 P 0 0 0 0 Past Encounters Encounter ID Performer Location Encounter Start Date Encounter Closed Date Diagnosis/Indication Diagnosis SNOMED-CT Code Diagnosis ICD10 Code Diagnosis Note [id number] Lenny Aponte PA-C [facility] [address] [place] [address] 07/11/2022 14:36:06 07/11/2022 15:21:39 Liver enzymes level above reference range 161319409 R74.01 Steatotic liver disease 311946795 K76.0 Daily drinker 809425874 Z72.89 approx 2 glasses of wine in the evenings Health Concerns Section Related Observation LastModified by Organization Detai ls LastModified Time None Recorded Concern Status LastModified by Organization Details LastModified Time None Recorded Advance Directives Directive None Recorded Payers Insurance Date Sequence Insurance Name Policy Number Policy Self Covered Member ID Self Member ID Guarantor Name 07/11/2022 1 [employer] Alexa Diaz [id number] J tangela Diaz OBGyn Episode No OBEpisode recorded.
--- OUTSIDE RECORDS SUMMARY | 2025-01-25 13:46 | XMS_ITS | Clinical Summary ---
Author Organization [facility] Address [address] [place] [address] Care Team Providers Care Market Research Assistant Name Role Phone South Lara MD Primary Care Provider [phone] Social History Tobacco Use Types Packs/Day Years [...] 03/29/2016 Insurance [employer] MEDICAID [place] Care Teams Market Research Assistant Relationship Specialty Start Date End Date South Lara MD PCP - General Emergency Medicine 07/06/20
--- OUTSIDE RECORDS SUMMARY | 2025-01-25 13:46 | XMS_ITS | Clinical Summary ---
Author Organization Healthcare Address [address] [place] [address] Care Team Providers Care Crane Mechanic Name Role Phone Unavailable Primary Care Provider [...] 11/18/2011 [facility]-Zoster Vaccines (1 of 2) 11/18/2011 [id number] Vaccine (2023- season) 2024 02/01/2022, 03/09/2021, 02/12/2021 [...] patient's age to complete this topic Insurance [email or web address] [facility] MEDICAID
== END 2025-01-25 23:59 | disposition home or self-care (01) ==
LOC: RAD 13:43
PROVIDERS: PCP Nurse Practitioner Family; Visit Provider Internal Medicine Medical Oncology
DX: M85.852 Other specified disorders of bone density and structure, left thigh (principal); M85.851 Other specified disorders of bone density and structure, right thigh; M85.88 Other specified disorders of bone density and structure, other site; D05.10 Intraductal carcinoma in situ of unspecified breast; E55.9 Vitamin D deficiency, unspecified; Z78.0 Asymptomatic menopausal state; Z13.820 Encounter for screening for osteoporosis
CPT/HCPCS: 77080